=== PATIENT | male | born 1935 | race Caucasian/White ===

== ENCOUNTER 2017-02-06 09:34 | Inpatient (IN) | payer MEDICARE ==
[2017-02-06] MEDS ORDERED: SODIUM CHLORIDE 0.9% 500 ML IV ONE (09:38)
--- NOTE | 2017-02-06 09:41 | ED ---
General Adult HPI - General Stated complaint: Unresponsive Time Seen by Provider: 02/06/17 09:34 Source: RN notes reviewed - History of Present Illness Initial comments: This is an 81-year-old male who presents emergency Department because he was found unresponsive by the [facility] staff. EMS arrived and stated that he was arousable with sternal rub however he was still altered compared to his baseline. They also stated that in route he is heart rate got down to 22 and was between 30 and 50 most of the right in. Patient became more alert on the way and it is now at his baseline. Patient is able to tell me that he is in the hospital and he does not know why is here. Patient states he has no pain in no complaints he has no headache he denies any numbness weakness. Patient denies lightheadedness. Patient denies chest pain difficult to breathing or shortness of breath. Patient denies any palpitations. Patient denies abdominal pain patient denies nausea vomiting diarrhea. Patient denies any recent history of fever or cough. - Related Data Home Medications Medication Instructions Recorded Confirmed Acetaminophen Tab [Tylenol Tab] 650 mg PO Q4H PRN 02/06/17 02/06/17 Aspirin 81 mg PO DAILY@1700 02/06/17 02/06/17 Baclofen [Lioresal] 10 mg PO BID@1200,2100 02/06/17 02/06/17 Baclofen [Lioresal] 20 mg PO BID@0800,1700 02/06/17 02/06/17 Budesonide [Pulmicort] 0.5 mg INHALATION RT-BID@0800,1700 02/06/17 02/06/17 Citalopram Hydrobromide [CeleXA] 10 mg PO DAILY 02/06/17 02/06/17 Diclofenac Sodium [Voltaren Gel] 1 applic TOPICAL TID@0800,1400,2000 02/06/17 Ferrous Sulfate [Feosol] 325 mg PO DAILY@1700 02/06/17 02/06/17 HYDROcodone/APAP 7.5-325MG [[place] 1 tab PO Q6H PRN 02/06/17 02/06/17 7.5-325] Insulin Aspart [NovoLOG] 4 unit SQ DAILY@1100 02/06/17 02/06/17 Insulin Aspart [NovoLOG] 4 unit SQ DAILY@1730 02/06/17 02/06/17 Insulin Aspart [NovoLOG] 7 unit SQ DAILY@0700 02/06/17 02/06/17 Insulin Glargine [Lantus] 10 unit SQ HS@2130 02/06/17 02/06/17 Lidocaine 2% Gel [Xylocaine Jelly 1 applic TOPICAL DAILY PRN 02/06/17 02/06/17 2%] Loperamide HCl [Imodium A-D] 4 mg PO BID PRN MDD 8MG 02/06/17 02/06/17 Memantine [Namenda] 5 mg PO DAILY 02/06/17 02/06/17 Menthol/Zinc Oxide [Calmoseptine 1 applic TOPICAL BID 02/06/17 02/06/17 Ointment] Menthol/Zinc Oxide [Calmoseptine 1 applic TOPICAL DAILY PRN 02/06/17 02/06/17 Ointment] Metoprolol Succinate (ER) [Toprol 25 mg PO DAILY 02/06/17 02/06/17 Xl] Potassium Chloride ER [K-Dur 10] 10 meq PO DAILY@1700 02/06/17 02/06/17 Rivaroxaban [Xarelto] 15 mg PO DAILY 02/06/17 02/06/17 Simvastatin [Zocor] 20 mg PO HS 02/06/17 02/06/17 sitaGLIPtin PHOSPHATE [Januvia] 50 mg PO DAILY 02/06/17 02/06/17 Allergies Allergy/AdvReac Type Severity Reaction Status Date / Time No Known Allergies Allergy Verified 02/06/17 09:55 Review of Systems ROS Statement: Those systems with pertinent positive or pertinent negative responses have been documented in the HPI. ROS Other: All systems not noted in ROS Statement are negative. General Exam - General Exam Comments Initial Comments: GENERAL: Patient is well-developed and well-nourished. Patient is nontoxic and well- hydrated and is in no acute distress. ENT: Neck is soft and supple. No significant lymphadenopathy is noted. Oropharynx is clear. Moist mucous membranes. Neck has full range of motion without eliciting any pain. EYES: The sclera were anicteric and conjunctiva were pink and moist. Extraocular movements were intact and pupils were equal round and reactive to light. Eyelids were unremarkable. PULMONARY: Unlabored respirations. Good breath sounds bilaterally. No audible rales rhonchi or wheezing was noted. CARDIOVASCULAR: Patient's heart rate is bradycardic in the low 50s ABDOMEN: Soft and nontender with normal bowel sounds. No palpable organomegaly was noted. There is no palpable pulsatile mass. SKIN: Skin is clear with no lesions or rashes and otherwise unremarkable. NEUROLOGIC: Patient is alert and oriented x3. Cranial nerves II through XII are grossly intact. Motor and sensory are also intact. Normal speech, volume and content. Symmetrical smile. MUSCULOSKELETAL: Patient has bilateral edema and chronic cellulitis. LYMPHATICS: No significant lymphadenopathy is noted PSYCHIATRIC: Normal psychiatric evaluation. Normal interpersonal interactions appears functionally intact in deals appropriately with others. No signs of depression. No signs of anxiety Course Vital Signs 02/06/17 02/06/17 02/06/17 09:43 10:01 10:31 Temperature 97.0 F L Pulse Rate 49 L 48 L 46 L Respiratory 18 18 18 Rate Blood Pressure 129/67 131/62 155/72 O2 Sat by Pulse 97 99 98 Oximetry Medical Decision Making - Medical Decision Making EKG shows 49 bpm it appears to be atrial fibrillation QRS is under QT intervals 492 QTC is 444. Patient's EKG shows no ST segment elevation or depression no T- wave abnormalities are noted. Chest x-ray shows possible airspace disease in the retrocardiac space patient however has no breathing symptoms or cough. - Lab Data Result diagrams: 02/06/17 10:03 02/06/17 10:03 Lab Results 02/06/17 02/06/17 02/06/17 Range/Units 09:58 10:03 10:03 WBC 9.6 (3.8-10.6) k/uL RBC 5.94 H (4.30-5.90) m/uL Hgb 14.2 (13.0-17.5) gm/dL Hct 47.3 (39.0-53.0) % MCV 79.7 L (80.0-100.0) fL MCH 24.0 L (25.0-35.0) pg MCHC 30.1 L (31.0-37.0) g/dL RDW 19.1 H (11.5-15.5) % Plt Count 197 (150-450) k/uL Neutrophils % 65 % Lymphocytes % 21 % Monocytes % 5 % Eosinophils % 6 % Basophils % 1 % Neutrophils # 6.2 (1.3-7.7) k/uL Lymphocytes # 2.0 (1.0-4.8) k/uL Monocytes # 0.5 (0-1.0) k/uL Eosinophils # 0.6 (0-0.7) k/uL Basophils # 0.1 (0-0.2) k/uL Hypochromasia Moderate Anisocytosis Slight Microcytosis Slight PT (9.0-12.0) sec INR (<1.2) APTT (22.0-30.0) sec Sodium (137-145) mmol/L Potassium (3.5-5.1) mmol/L Chloride (98-107) mmol/L Carbon Dioxide (22-30) mmol/L Anion Gap mmol/L BUN (9-20) mg/dL Creatinine (0.66-1.25) mg/dL Est GFR (MDRD) Af Amer (>60 ml/min/1.73 sqM) Est GFR (MDRD) Non-Af (>60 ml/min/1.73 sqM) Glucose (74-99) mg/dL POC Glucose (mg/dL) (75-99) mg/dL POC Glu [place] ID Plasma Lactic Acid Ihsan (0.7-2.0) mmol/L Calcium (8.4-10.2) mg/dL Total Bilirubin (0.2-1.3) mg/dL AST (17-59) U/L ALT (21-72) U/L Alkaline Phosphatase (38-126) U/L Total Creatine Kinase 23 L (55-170) U/L CK-MB (CK-2) 1.1 (0.0-2.4) ng/mL CK-MB (CK-2) Rel Index 4.8 Troponin I <0.012 (0.000-0.034) ng/mL Total Protein (6.3-8.2) g/dL Albumin (3.5-5.0) g/dL Urine Color Brown Urine Appearance Turbid (Clear) Urine pH 6.0 (5.0-8.0) Ur Specific Harper 1.015 (1.001-1.035) Urine Protein 2+ H (Negative) Urine Glucose (UA) Negative (Negative) Urine Ketones Negative (Negative) Urine Blood Moderate H (Negative) Urine Nitrite Positive (Negative) Urine Bilirubin Negative (Negative) Urine Urobilinogen <2.0 (<2.0) mg/dL Ur Leukocyte Esterase Large H (Negative) Urine RBC 56 H (0-5) /hpf Urine WBC >182 H (0-5) /hpf Urine WBC Clumps Moderate H (None) /hpf Urine Bacteria Moderate H (None) /hpf Urine Opiates Screen Cancelled Ur Oxycodone Screen Cancelled Urine Methadone Screen Cancelled Ur Propoxyphene Screen Cancelled Ur Barbiturates Screen Cancelled U Tricyclic Antidepress Cancelled Ur Phencyclidine Scrn Cancelled Ur Amphetamines Screen Cancelled U Methamphetamines Scrn Cancelled U Benzodiazepines Scrn Cancelled Urine Cocaine Screen Cancelled U Marijuana (THC) Screen Cancelled 02/06/17 02/06/17 02/06/17 Range/Units 10:03 10:03 10:08 WBC (3.8-10.6) k/uL RBC (4.30-5.90) m/uL Hgb (13.0-17.5) gm/dL Hct (39.0-53.0) % MCV (80.0-100.0) fL MCH (25.0-35.0) pg MCHC (31.0-37.0) g/dL RDW (11.5-15.5) % Plt Count (150-450) k/uL Neutrophils % % Lymphocytes % % Monocytes % % Eosinophils % % Basophils % % Neutrophils # (1.3-7.7) k/uL Lymphocytes # (1.0-4.8) k/uL Monocytes # (0-1.0) k/uL Eosinophils # (0-0.7) k/uL Basophils # (0-0.2) k/uL Hypochromasia Anisocytosis Microcytosis PT 11.9 (9.0-12.0) sec INR 1.2 H (<1.2) APTT 29.0 (22.0-30.0) sec Sodium 141 (137-145) mmol/L Potassium 4.7 (3.5-5.1) mmol/L Chloride 105 (98-107) mmol/L Carbon Dioxide 30 (22-30) mmol/L Anion Gap 6 mmol/L BUN 17 (9-20) mg/dL Creatinine 0.82 (0.66-1.25) mg/dL Est GFR (MDRD) Af Amer >60 (>60 ml/min/1.73 sqM) Est GFR (MDRD) Non-Af >60 (>60 ml/min/1.73 sqM) Glucose 113 H (74-99) mg/dL POC Glucose (mg/dL) 124 H (75-99) mg/dL POC Glu [place] ID [place] Plasma Lactic Acid Ihsan (0.7-2.0) mmol/L Calcium 8.8 (8.4-10.2) mg/dL Total Bilirubin 0.6 (0.2-1.3) mg/dL AST 16 L (17-59) U/L ALT 30 (21-72) U/L Alkaline Phosphatase 92 (38-126) U/L Total Creatine Kinase (55-170) U/L CK-MB (CK-2) (0.0-2.4) ng/mL CK-MB (CK-2) Rel Index Troponin I (0.000-0.034) ng/mL Total Protein 6.1 L (6.3-8.2) g/dL Albumin 3.1 L (3.5-5.0) g/dL Urine Color Urine Appearance (Clear) Urine pH (5.0-8.0) Ur Specific [place] (1.001-1.035) Urine Protein (Negative) Urine Glucose (UA) (Negative) Urine Ketones (Negative) Urine Blood (Negative) Urine Nitrite (Negative) Urine Bilirubin (Negative) Urine Urobilinogen (<2.0) mg/dL Ur Leukocyte Esterase (Negative) Urine RBC (0-5) /hpf Urine WBC (0-5) /hpf Urine WBC Clumps (None) /hpf Urine Bacteria (None) /hpf Urine Opiates Screen Ur Oxycodone Screen Urine Methadone Screen Ur Propoxyphene Screen Ur Barbiturates Screen U Tricyclic Antidepress Ur Phencyclidine Scrn Ur Amphetamines Screen U Methamphetamines Scrn U Benzodiazepines Scrn Urine Cocaine Screen U Marijuana (THC) Screen 02/06/17 Range/Units 11:11 WBC (3.8-10.6) k/uL RBC (4.30-5.90) m/uL Hgb (13.0-17.5) gm/dL Hct (39.0-53.0) % MCV (80.0-100.0) fL MCH (25.0-35.0) pg MCHC (31.0-37.0) g/dL RDW (11.5-15.5) % Plt Count (150-450) k/uL Neutrophils % % Lymphocytes % % Monocytes % % Eosinophils % % Basophils % % Neutrophils # (1.3-7.7) k/uL Lymphocytes # (1.0-4.8) k/uL Monocytes # (0-1.0) k/uL Eosinophils # (0-0.7) k/uL Basophils # (0-0.2) k/uL Hypochromasia Anisocytosis Microcytosis PT (9.0-12.0) sec INR (<1.2) APTT (22.0-30.0) sec Sodium (137-145) mmol/L Potassium (3.5-5.1) mmol/L Chloride (98-107) mmol/L Carbon Dioxide (22-30) mmol/L Anion Gap mmol/L BUN (9-20) mg/dL Creatinine (0.66-1.25) mg/dL Est GFR (MDRD) Af Amer (>60 ml/min/1.73 sqM) Est GFR (MDRD) Non-Af (>60 ml/min/1.73 sqM) Glucose (74-99) mg/dL POC Glucose (mg/dL) (75-99) mg/dL POC Glu [place] ID Plasma Lactic Acid Ihsan 3.0 H* (0.7-2.0) mmol/L Calcium (8.4-10.2) mg/dL Total Bilirubin (0.2-1.3) mg/dL AST (17-59) U/L ALT (21-72) U/L Alkaline Phosphatase (38-126) U/L Total Creatine Kinase (55-170) U/L CK-MB (CK-2) (0.0-2.4) ng/mL CK-MB (CK-2) Rel Index Troponin I (0.000-0.034) ng/mL Total Protein (6.3-8.2) g/dL Albumin (3.5-5.0) g/dL Urine Color Urine Appearance (Clear) Urine pH (5.0-8.0) Ur Specific [place] (1.001-1.035) Urine Protein (Negative) Urine Glucose (UA) (Negative) Urine Ketones (Negative) Urine Blood (Negative) Urine Nitrite (Negative) Urine Bilirubin (Negative) Urine Urobilinogen (<2.0) mg/dL Ur Leukocyte Esterase (Negative) Urine RBC (0-5) /hpf Urine WBC (0-5) /hpf Urine WBC Clumps (None) /hpf Urine Bacteria (None) /hpf Urine Opiates Screen Ur Oxycodone Screen Urine Methadone Screen Ur Propoxyphene Screen Ur Barbiturates Screen U Tricyclic Antidepress Ur Phencyclidine Scrn Ur Amphetamines Screen U Methamphetamines Scrn U Benzodiazepines Scrn Urine Cocaine Screen U Marijuana (THC) Screen Disposition Clinical Impression: Decreased responsiveness, Bradycardia, Urinary tract infection Disposition: ADMITTED IP TO THIS HOSP Referrals: Sabas Alexis MD [Primary Care Provider] - 1-2 days Time of Disposition: 11:38
[2017-02-06 10:09] LABS: Glucose,Whole Blood 124 mg/dL (75-99)
[2017-02-06 10:25] LABS: Anisocytosis Slight; Basophils # (A) 0.1 k/uL (0-0.2); Basophils % (A) 1 %; CH 24.1; CHCM 30.4; Eosinophils # (A) 0.6 k/uL (0-0.7); Eosinophils % (A) 6 %; HCT 47.3 % (39.0-53.0); HDW 2.96; HGB 14.2 gm/dL (13.0-17.5); Hypochromasia Moderate; Luc # (Auto) 0.24; Luc % (Auto) 3; Lymphocytes % (A) 21 %; MCHC 30.1 g/dL (31.0-37.0); MCV 79.7 fL (80.0-100.0); Mean Platelet Volume 7.6; Microcytosis Slight; Monocytes # (A) 0.5 k/uL (0-1.0); Monocytes % (A) 5 %; Neutrophils # (A) 6.2 k/uL (1.3-7.7); Neutrophils % (A) 65 %; RBC 5.94 m/uL (4.30-5.90); RDW 19.1 % (11.5-15.5); WBC 9.6 k/uL (3.8-10.6); WBC (Perox) 9.18
--- NOTE | 2017-02-06 10:29 | XR ---
EXAMINATION TYPE: XR chest 2V DATE OF EXAM: 02/06/2017 COMPARISON: NONE HISTORY: Altered mental status TECHNIQUE: Frontal and lateral views of the chest are obtained. FINDINGS: Focal retrocardiac airspace disease is seen within the left lower lobe. No pleural effusio n or pneumothorax. Degenerative changes of the thoracic spine and acromioclavicular joints as well as to a lesser degree over the right glenohumeral joint are seen. Cardiac silhouette mildly enlarged. IMPRESSION: Retrocardiac airspace disease within the left lower lobe. Primary diagnostic considerati on should be given to pneumonia.
[2017-02-06 10:34] LABS: INR 1.2 (<1.2); Prothrombin Time 11.9 sec (9.0-12.0)
[2017-02-06 10:37] LABS: ALT 30 U/L (21-72); AST 16 U/L (17-59); Alkaline Phosphatase 92 U/L (38-126); Anion Gap 6 mmol/L; Blood Urea Nitrogen 17 mg/dL (9-20); Calcium 8.8 mg/dL (8.4-10.2); Carbon Dioxide 30 mmol/L (22-30); Chloride 105 mmol/L (98-107); Glucose 113 mg/dL (74-99); Non-African American GFR(MDRD) >60 (>60 ml/min/1.73 sqM); Potassium 4.7 mmol/L (3.5-5.1); Sodium 141 mmol/L (137-145); Total Bilirubin 0.6 mg/dL (0.2-1.3); Total Protein 6.1 g/dL (6.3-8.2)
[2017-02-06 10:39] LABS: Appearance,Urine Turbid (Clear); Bacteria,Urine Moderate /hpf; Bilirubin,Urine Negative (Negative); Glucose,Urine (UA) Negative (Negative); Ketones,Urine Negative (Negative); Leukocyte Esterase,Urine Large (Negative); Nitrite,Urine Positive (Negative); Particle Count 44298; Protein,Urine 2+ (Negative); RBC,Urine 56 /hpf (0-5); UA Billing (MACRO vs. MICRO) MICRO; Urobilinogen,Urine <2.0 mg/dL (<2.0); WBC,Urine >182 /hpf (0-5)
[2017-02-06 10:47] LABS: Creatine Kinase 23 U/L (55-170)
[2017-02-06 10:54] LABS: Specific Gravity,Urine 1.015 (1.001-1.035)
[2017-02-06 11:00] LABS: Creatine Kinase MB 1.1 ng/mL (0.0-2.4); Troponin I <0.012 ng/mL (0.000-0.034)
[2017-02-06] MEDS ORDERED: SODIUM CHLORIDE 0.9% 1,000 ML IV STA (11:36)
[2017-02-06] MEDS ORDERED: SODIUM CHLORIDE 0.9% 1,000 ML IV ONE (11:38)
--- NOTE | 2017-02-06 14:08 | P.CRDCN ---
History of Present Illness Consult date: 02/06/17 Chief complaint: Syncopal episode History of present illness: This is a pleasant 81-year-old gentleman who is a resident of a retirement with a past medical history significant for chronic atrial fibrillation who was brought to the hospital by ambulance after he was found unresponsive at the retirement. The patient does not recall feeling dizzy or lightheaded but she thinks that he lost his consciousness. He did not experience any symptoms of chest pain or discomfort or difficulty breathing or feeling of heart racing or fluttering or skipped heart beats. At to the retirement the patient was found to be severely bradycardic with heart rate in the 30s. He was receiving Toprol-XL at 25 mg by mouth daily which was stopped. Currently the patient has been maintaining a heart rate in the 40s and he is in chronic atrial fibrillation. The patient is on anticoagulation as well as. He has severe MS and he is almost immobile. As a matter of fact he fell out of the bed few days ago. I don't think overall that the patient is a candidate to be on oral anticoagulation in view of the high risk of falling and bleeding. The EKG showed baseline atrial fibrillation with a slow ventricular response. The chest x-ray did not show any acute abnormalities. The blood work also did not show any acute abnormalities. Past Medical History Past Medical History: Atrial Fibrillation, COPD, Diabetes Mellitus Additional Past Medical History / Comment(s): MS History of Any Multi-Drug Resistant Organisms: None Reported Past Surgical History: Orthopedic Surgery Past Psychological History: No Psychological Hx Reported Smoking Status: Former smoker Past Alcohol Use History: None Reported Past Drug Use History: None Reported Medications and Allergies Home Medications Medication Instructions Recorded Confirmed Type Acetaminophen Tab [Tylenol Tab] 650 mg PO Q4H PRN 02/06/17 02/06/17 History Aspirin 81 mg PO DAILY@1700 02/06/17 02/06/17 History Baclofen [Lioresal] 10 mg PO BID@1200,2100 02/06/17 02/06/17 History Baclofen [Lioresal] 20 mg PO BID@0800,1700 02/06/17 02/06/17 History Budesonide [Pulmicort] 0.5 mg INHALATION RT-BID@0800,1700 02/06/17 02/06/17 History Citalopram Hydrobromide [CeleXA] 10 mg PO DAILY 02/06/17 02/06/17 History Diclofenac Sodium [Voltaren Gel] 1 applic TOPICAL TID@0800,1400,2000 02/06/17 History Ferrous Sulfate [Feosol] 325 mg PO DAILY@1700 02/06/17 02/06/17 History HYDROcodone/APAP 7.5-325MG [[place] 1 tab PO Q6H PRN 02/06/17 02/06/17 History 7.5-325] Insulin Aspart [NovoLOG] 4 unit SQ DAILY@1100 02/06/17 02/06/17 History Insulin Aspart [NovoLOG] 4 unit SQ DAILY@1730 02/06/17 02/06/17 History Insulin Aspart [NovoLOG] 7 unit SQ DAILY@0700 02/06/17 02/06/17 History Insulin Glargine [Lantus] 10 unit SQ HS@2130 02/06/17 02/06/17 History Lidocaine 2% Gel [Xylocaine Jelly 1 applic TOPICAL DAILY PRN 02/06/17 02/06/17 History 2%] Loperamide HCl [Imodium A-D] 4 mg PO BID PRN MDD 8MG 02/06/17 02/06/17 History Memantine [Namenda] 5 mg PO DAILY 02/06/17 02/06/17 History Menthol/Zinc Oxide [Calmoseptine 1 applic TOPICAL BID 02/06/17 02/06/17 History Ointment] Menthol/Zinc Oxide [Calmoseptine 1 applic TOPICAL DAILY PRN 02/06/17 02/06/17 History Ointment] Metoprolol Succinate (ER) [Toprol 25 mg PO DAILY 02/06/17 02/06/17 History Xl] Potassium Chloride ER [K-Dur 10] 10 meq PO DAILY@1700 02/06/17 02/06/17 History Rivaroxaban [Xarelto] 15 mg PO DAILY 02/06/17 02/06/17 History Simvastatin [Zocor] 20 mg PO HS 02/06/17 02/06/17 History sitaGLIPtin PHOSPHATE [Januvia] 50 mg PO DAILY 02/06/17 02/06/17 History Allergies Allergy/AdvReac Type Severity Reaction Status Date / Time No Known Allergies Allergy Verified 02/06/17 09:55 Physical Exam Vitals: Vital Signs Temp Pulse Resp BP Pulse Ox 02/06/17 11:45 97.3 F L 47 L 18 133/69 98 02/06/17 10:31 46 L 18 155/72 98 02/06/17 10:01 48 L 18 131/62 99 02/06/17 09:43 97.0 F L 49 L 18 129/67 97 Intake and Output 02/05/17 02/06/17 02/06/17 22:59 06:59 14:59 Other: Weight 98.883 kg Patient Weight 02/07/17 06:59 Weight 98.883 kg - Constitutional General appearance: no acute distress - Respiratory Respiratory: bilateral: diminished - Cardiovascular Rhythm: irregularly irregular Heart sounds: normal: S1, S2 Results 02/06/17 10:03 02/06/17 10:03 Cardiac Enzymes 02/06/17 02/06/17 Range/Units 10:03 10:03 AST 16 L (17-59) U/L CK-MB (CK-2) 1.1 (0.0-2.4) ng/mL Troponin I <0.012 (0.000-0.034) ng/mL Coagulation 02/06/17 Range/Units 10:03 PT 11.9 (9.0-12.0) sec APTT 29.0 (22.0-30.0) sec CBC 02/06/17 Range/Units 10:03 WBC 9.6 (3.8-10.6) k/uL RBC 5.94 H (4.30-5.90) m/uL Hgb 14.2 (13.0-17.5) gm/dL Hct 47.3 (39.0-53.0) % Plt Count 197 (150-450) k/uL Comprehensive Metabolic Panel 02/06/17 Range/Units 10:03 Sodium 141 (137-145) mmol/L Potassium 4.7 (3.5-5.1) mmol/L Chloride 105 (98-107) mmol/L Carbon Dioxide 30 (22-30) mmol/L BUN 17 (9-20) mg/dL Creatinine 0.82 (0.66-1.25) mg/dL Glucose 113 H (74-99) mg/dL Calcium 8.8 (8.4-10.2) mg/dL AST 16 L (17-59) U/L ALT 30 (21-72) U/L Alkaline Phosphatase 92 (38-126) U/L Total Protein 6.1 L (6.3-8.2) g/dL Albumin 3.1 L (3.5-5.0) g/dL Current Medications Generic Name Dose Route Start Last Admin Trade Name Freq PRN Reason Stop Dose Admin Ceftriaxone Sodium 1,000 mg/ 50 mls @ 100 mls/hr 02/07/17 09:00 Sodium Chloride IVPB Q24HR EZE Sodium Chloride 1,000 mls @ 75 mls/hr 02/06/17 11:38 02/06/17 12:12 Saline 0.9% IV 02/07/17 00:57 75 mls/hr .[id number] Administration Intake and Output 02/05/17 02/06/17 02/06/17 22:59 06:59 14:59 Other: Weight 98.883 kg Patient Weight 02/07/17 06:59 Weight 98.883 kg 02/06/17 10:03 02/06/17 10:03 Assessment and Plan Plan: This is a pleasant 81-year-old gentleman who is known to have chronic atrial fibrillation who was receiving Toprol-XL at 25 mg by mouth daily. He was found to be unresponsive at the retirement and she was found to be severely bradycardic with heart rate in the 30s. Currently the patient has been maintaining good blood pressure and heart rate around 40 beats per minutes. I agree about continue holding the Toprol-XL. Ruled the patient out for acute coronary syndrome. Check the TSH to rule out any hypothyroidism. Continue monitor the heart rate for the next 24 hours.
[2017-02-06] MEDS ORDERED: LOPERAMIDE 2 MG CAP PO PRN (14:35)
[2017-02-06] MEDS ORDERED: ACETAMINOPHEN TAB 325 MG TAB PO PRN (14:35)
[2017-02-06] MEDS ORDERED: HYDROcodone/APAP 7.5-325MG 1 EACH TAB PO PRN (14:35)
--- NOTE | 2017-02-06 14:40 | P.HPIM ---
History of Present Illness H&P Date: 02/06/17 Chief Complaint: Syncope and unresponsiveness heart rate mid 20s This is a pleasant 81-year-old gentleman patient of Dr. Dr. Alexis up at [facility], he has underlying history of Parkinson's requiring a power chair otherwise he is bedbound, chronic indwelling Lehman catheter, CAD, chronic atrial fibrillation, BPH, anemia, left foot drop, admitted to the hospital secondary to him being found unresponsive in bed. Patient was severely bradycardic when initially by residential staff, heart rate was mid 20s evaluated by the EMS, heart rate mid 30s, he is on Toprol-XL 25 mg daily. Patient does not have any recollection of events, patient denies any chest pain no palpitations he does have chills sweats no fever no nausea no vomiting or diarrhea, his last Lehman catheter change was 3 weeks ago performed at the emergency room, they have difficulty on inserting the Lehman catheter at the residential and requires ER physician to do it for them. 3 days ago patient had fallen out of bed and had hematuria as a result of L1, patient denies any new joint difficulties In the emergency room hemoglobin was 14.2 INR of 1.2 creatinine of 0.82, pyuria noted urine WBC of over 182, patient currently started on IV Rocephin for catheter related urinary tract infection with cultures pending, consults were made with Dr. Diaz cardiology, Toprol-XL has been discontinued Review of Systems Constitutional: Reports as per HPI, Reports chills, Denies anorexia, Denies chronic headaches, Denies chronic pain, Denies daytime sleepiness, Denies fatigue, Denies fever, Denies lethargy, Denies malaise, Denies night sweats, Denies poor appetite, Denies sweats, Denies weakness, Denies weight gain, Denies weight loss Ears, nose, mouth and throat: Reports as per HPI, Denies ant. neck pain, Denies bleeding gums, Denies dental pain, Denies dysphagia, Denies epistaxis, Denies headache, Denies hoarseness, Denies mouth pain, Denies nasal congestion, Denies nasal discharge, Denies neck fullness/pressure, Denies neck lump, Denies nose pain, Denies odynophagia, Denies post-nasal drip, Denies sinus pain, Denies sinus pressure, Denies swelling in mouth, Denies swelling in throat, Denies sore throat, Denies vertigo, Denies voice changes Cardiovascular: Reports as per HPI, Reports irregular heart beat, Denies chest pain, Denies claudication, Denies decreased exercise tolerance, Denies dyspnea on exertion, Denies edema, Denies high blood pressure, Denies leg edema, Denies lightheadedness, Denies orthopnea, Denies palpitations, Denies paroxysmal nocturnal dyspnea, Denies phlebitis, Denies rapid heart beat, Denies shortness of breath, Denies syncope Respiratory: Reports as per HPI, Denies congestion, Denies cough, Denies cough with sputum, Denies dyspnea, Denies excessive sputum, Denies hemoptysis, Denies home oxygen, Denies pain, Denies pain on inspiration, Denies pleurisy, Denies respiratory infections, Denies sleep apnea, Denies snoring, Denies wheezing Gastrointestinal: Reports as per HPI, Denies abdominal pain, Denies belching, Denies bloating, Denies BRBPR, Denies change in bowel habits, Denies coffee ground emesis, Denies constipation, Denies diarrhea, Denies dyspepsia, Denies early satiety, Denies excessive gas, Denies heartburn, Denies hematemesis, Denies hematochezia, Denies indigestion, Denies jaundice, Denies lactose intolerance, Denies loss of appetite, Denies melena, Denies nausea, Denies vomiting Genitourinary: Reports as per HPI, Reports hematuria, Reports urinary retention Musculoskeletal: Reports as per HPI, Reports gait dysfunction Integumentary: Reports as per HPI, Reports sores Neurological: Reports as per HPI, Reports syncope, Denies aphasia, Denies ataxia , Denies balance difficulties, Denies burning pain, Denies change in mentation, Denies change in smell/taste, Denies change in speech, Denies confusion, Denies convulsions, Denies double vision, Denies gait dysfunction, Denies head injury, Denies headaches, Denies hearing difficulties, Denies lack of coordination, Denies loss of vision, Denies memory loss, Denies migraines, Denies motor disturbance, Denies numbness, Denies paralysis, Denies paresthesias, Denies seizures, Denies sensory deficit, Denies spasticity, Denies tic, Denies tingling , Denies transient paralysis, Denies tremors, Denies vertigo, Denies weakness, Denies visual changes Psychiatric: Reports as per HPI Endocrine: Reports as per HPI Hematologic/Lymphatic: Reports easy bleeding Allergic/Immunologic: Reports as per HPI Past Medical History Past Medical History: Atrial Fibrillation, COPD, Diabetes Mellitus Additional Past Medical History / Comment(s): MS History of Any Multi-Drug Resistant Organisms: None Reported Past Surgical History: Orthopedic Surgery (Left shoulder surgery arthroscopy), Prostate Surgery (TURP) Past Psychological History: No Psychological Hx Reported Smoking Status: Former smoker (Quit 13 years ago) Past Alcohol Use History: None Reported Past Drug Use History: None Reported - Past Family History Father History Unknown: Yes ( at 85 secondary to heart disease) Mother History Unknown: Yes ( at 80 from heart disease history of thyroid cancer) Brother(s) Family Medical History: No Reported History Sister(s) Family Medical History: No Reported History Daughter(s) Family Medical History: No Reported History Son(s) Family Medical History: Coronary Artery Disease (CAD) (PAD and angioplasty) Medications and Allergies Home Medications Medication Instructions Recorded Confirmed Type Acetaminophen Tab [Tylenol Tab] 650 mg PO Q4H PRN 02/06/17 02/06/17 History Aspirin 81 mg PO DAILY@169902/06/17 02/06/17 History Baclofen [Lioresal] 10 mg PO BID@1200,2100 02/06/17 02/06/17 History Baclofen [Lioresal] 20 mg PO BID@0800,1700 02/06/17 02/06/17 History Budesonide [Pulmicort] 0.5 mg INHALATION RT-BID@0800,1700 02/06/17 02/06/17 History Citalopram Hydrobromide [CeleXA] 10 mg PO DAILY 02/06/17 02/06/17 History Diclofenac Sodium [Voltaren Gel] 1 applic TOPICAL TID@0800,1400,2000 02/06/17 History Ferrous Sulfate [Feosol] 325 mg PO DAILY@1700 02/06/17 02/06/17 History HYDROcodone/APAP 7.5-325MG [Ringwood 1 tab PO Q6H PRN 02/06/17 02/06/17 History 7.5-325] Insulin Aspart [NovoLOG] 4 unit SQ DAILY@1100 02/06/17 02/06/17 History Insulin Aspart [NovoLOG] 4 unit SQ DAILY@1730 02/06/17 02/06/17 History Insulin Aspart [NovoLOG] 7 unit SQ DAILY@0700 02/06/17 02/06/17 History Insulin Glargine [Lantus] 10 unit SQ HS@2130 02/06/17 02/06/17 History Lidocaine 2% Gel [Xylocaine Jelly 1 applic TOPICAL DAILY PRN 02/06/17 02/06/17 History 2%] Loperamide HCl [Imodium A-D] 4 mg PO BID PRN MDD 8MG 02/06/17 02/06/17 History Memantine [Namenda] 5 mg PO DAILY 02/06/17 02/06/17 History Menthol/Zinc Oxide [Calmoseptine 1 applic TOPICAL BID 02/06/17 02/06/17 History Ointment] Menthol/Zinc Oxide [Calmoseptine 1 applic TOPICAL DAILY PRN 02/06/17 02/06/17 History Ointment] Metoprolol Succinate (ER) [Toprol 25 mg PO DAILY 02/06/17 02/06/17 History Xl] Potassium Chloride ER [K-Dur 10] 10 meq PO DAILY@1700 02/06/17 02/06/17 History Rivaroxaban [Xarelto] 15 mg PO DAILY 02/06/17 02/06/17 History Simvastatin [Zocor] 20 mg PO HS 02/06/17 02/06/17 History sitaGLIPtin PHOSPHATE [Januvia] 50 mg PO DAILY 02/06/17 02/06/17 History Allergies Allergy/AdvReac Type Severity Reaction Status Date / Time No Known Allergies Allergy Verified 02/06/17 09:55 Physical Exam Vitals: Vital Signs Temp Pulse Resp BP Pulse Ox 02/06/17 11:45 97.3 F L 47 L 18 133/69 98 02/06/17 10:31 46 L 18 155/72 98 02/06/17 10:01 48 L 18 131/62 99 02/06/17 09:43 97.0 F L 49 L 18 129/67 97 Intake and Output 02/05/17 02/06/17 02/06/17 22:59 06:59 14:59 Other: Weight 98.883 kg Patient Weight 02/07/17 06:59 Weight 98.883 kg - Constitutional General appearance: cooperative, no acute distress - EENT Eyes: anicteric sclerae, EOMI, PERRLA, dentition normal, normal appearance ENT: NA/AT, normal oropharynx - Neck Neck: no lymphadenopathy, normal ROM, no other, no rigidity, no stridor, no thyromegaly - Respiratory Respiratory: bilateral: CTA, negative: diminished, dullness, rales - Cardiovascular Rhythm: regular Heart sounds: normal: S1, S2 Abnormal Heart Sounds: no systolic murmur, no diastolic murmur, no rub, no S3 Gallop, no S4 Gallop, no click, no other - Gastrointestinal General gastrointestinal: normal bowel sounds, soft - Genitourinary Male genitourinary: scrotal edema (No scrotal edema no penile laceration, small scab in the right scrotum) - Integumentary Integumentary: normal - Neurologic Neurologic: CNII-XII intact - Musculoskeletal Musculoskeletal: generalized weakness, strength equal bilaterally - Psychiatric Psychiatric: A&O x's 3, appropriate affect Results CBC & Chem 7: 02/06/17 10:03 02/06/17 10:03 Labs: Abnormal Lab Results - Last 24 Hours (Table) 02/06/17 02/06/17 02/06/17 Range/Units 09:58 10:03 10:03 RBC 5.94 H (4.30-5.90) m/uL MCV 79.7 L (80.0-100.0) fL MCH 24.0 L (25.0-35.0) pg MCHC 30.1 L (31.0-37.0) g/dL RDW 19.1 H (11.5-15.5) % INR (<1.2) Glucose (74-99) mg/dL POC Glucose (mg/dL) (75-99) mg/dL Plasma Lactic Acid Ihsan (0.7-2.0) mmol/L AST (17-59) U/L Total Creatine Kinase 23 L (55-170) U/L Total Protein (6.3-8.2) g/dL Albumin (3.5-5.0) g/dL Urine Protein 2+ H (Negative) Urine Blood Moderate H (Negative) Ur Leukocyte Esterase Large H (Negative) Urine RBC 56 H (0-5) /hpf Urine WBC >182 H (0-5) /hpf Urine WBC Clumps Moderate H (None) /hpf Urine Bacteria Moderate H (None) /hpf 02/06/17 02/06/17 02/06/17 Range/Units 10:03 10:03 10:08 RBC (4.30-5.90) m/uL MCV (80.0-100.0) fL MCH (25.0-35.0) pg MCHC (31.0-37.0) g/dL RDW (11.5-15.5) % INR 1.2 H (<1.2) Glucose 113 H (74-99) mg/dL POC Glucose (mg/dL) 124 H (75-99) mg/dL Plasma Lactic Acid Ihsan (0.7-2.0) mmol/L AST 16 L (17-59) U/L Total Creatine Kinase (55-170) U/L Total Protein 6.1 L (6.3-8.2) g/dL Albumin 3.1 L (3.5-5.0) g/dL Urine Protein (Negative) Urine Blood (Negative) Ur Leukocyte Esterase (Negative) Urine RBC (0-5) /hpf Urine WBC (0-5) /hpf Urine WBC Clumps (None) /hpf Urine Bacteria (None) /hpf 02/06/17 Range/Units 11:11 RBC (4.30-5.90) m/uL MCV (80.0-100.0) fL MCH (25.0-35.0) pg MCHC (31.0-37.0) g/dL RDW (11.5-15.5) % INR (<1.2) Glucose (74-99) mg/dL POC Glucose (mg/dL) (75-99) mg/dL Plasma Lactic Acid Ihsan 3.0 H* (0.7-2.0) mmol/L AST (17-59) U/L Total Creatine Kinase (55-170) U/L Total Protein (6.3-8.2) g/dL Albumin (3.5-5.0) g/dL Urine Protein (Negative) Urine Blood (Negative) Ur Leukocyte Esterase (Negative) Urine RBC (0-5) /hpf Urine WBC (0-5) /hpf Urine WBC Clumps (None) /hpf Urine Bacteria (None) /hpf Laboratory Results WBC 9.6 k/uL (3.8-10.6) 02/06/17 10:03 RBC 5.94 m/uL (4.30-5.90) H 02/06/17 10:03 Hgb 14.2 gm/dL (13.0-17.5) 02/06/17 10:03 Hct 47.3 % (39.0-53.0) 02/06/17 10:03 MCV 79.7 fL (80.0-100.0) L 02/06/17 10:03 MCH 24.0 pg (25.0-35.0) L 02/06/17 10:03 MCHC 30.1 g/dL (31.0-37.0) L 02/06/17 10:03 RDW 19.1 % (11.5-15.5) H 02/06/17 10:03 Plt Count 197 k/uL (150-450) 02/06/17 10:03 Neutrophils % 65 % 02/06/17 10:03 Lymphocytes % 21 % 02/06/17 10:03 Monocytes % 5 % 02/06/17 10:03 Eosinophils % 6 % 02/06/17 10:03 Basophils % 1 % 02/06/17 10:03 Neutrophils # 6.2 k/uL (1.3-7.7) 02/06/17 10:03 Lymphocytes # 2.0 k/uL (1.0-4.8) 02/06/17 10:03 Monocytes # 0.5 k/uL (0-1.0) 02/06/17 10:03 Eosinophils # 0.6 k/uL (0-0.7) 02/06/17 10:03 Basophils # 0.1 k/uL (0-0.2) 02/06/17 10:03 Hypochromasia Moderate 02/06/17 10:03 Anisocytosis Slight 02/06/17 10:03 Microcytosis Slight 02/06/17 10:03 PT 11.9 sec (9.0-12.0) 02/06/17 10:03 INR 1.2 (<1.2) H 02/06/17 10:03 APTT 29.0 sec (22.0-30.0) 02/06/17 10:03 Sodium 141 mmol/L (137-145) 02/06/17 10:03 Potassium 4.7 mmol/L (3.5-5.1) 02/06/17 10:03 Chloride 105 mmol/L (98-107) 02/06/17 10:03 Carbon Dioxide 30 mmol/L (22-30) 02/06/17 10:03 Anion Gap 6 mmol/L 02/06/17 10:03 BUN 17 mg/dL (9-20) 02/06/17 10:03 Creatinine 0.82 mg/dL (0.66-1.25) 02/06/17 10:03 Est GFR (MDRD) Af Amer >60 (>60 ml/min/1.73 sqM) 02/06/17 10:03 Est GFR (MDRD) Non-Af >60 (>60 ml/min/1.73 sqM) 02/06/17 10:03 Glucose 113 mg/dL (74-99) H 02/06/17 10:03 POC Glucose (mg/dL) 124 mg/dL (75-99) H 02/06/17 10:08 POC Glu Limnologist Bailey Holguin 02/06/17 10:08 Plasma Lactic Acid Ihsan 3.0 mmol/L (0.7-2.0) H* 02/06/17 11:11 Calcium 8.8 mg/dL (8.4-10.2) 02/06/17 10:03 Total Bilirubin 0.6 mg/dL (0.2-1.3) 02/06/17 10:03 AST 16 U/L (17-59) L 02/06/17 10:03 ALT 30 U/L (21-72) 02/06/17 10:03 Alkaline Phosphatase 92 U/L (38-126) 02/06/17 10:03 Total Creatine Kinase 23 U/L (55-170) L 02/06/17 10:03 CK-MB (CK-2) 1.1 ng/mL (0.0-2.4) 02/06/17 10:03 CK-MB (CK-2) Rel Index 4.8 02/06/17 10:03 Troponin I <0.012 ng/mL (0.000-0.034) 02/06/17 10:03 Total Protein 6.1 g/dL (6.3-8.2) L 02/06/17 10:03 Albumin 3.1 g/dL (3.5-5.0) L 02/06/17 10:03 Urine Color Brown 02/06/17 09:58 Urine Appearance Turbid (Clear) 02/06/17 09:58 Urine pH 6.0 (5.0-8.0) 02/06/17 09:58 Ur Specific Nettie 1.015 (1.001-1.035) 02/06/17 09:58 Urine Protein 2+ (Negative) H 02/06/17 09:58 Urine Glucose (UA) Negative (Negative) 02/06/17 09:58 Urine Ketones Negative (Negative) 02/06/17 09:58 Urine Blood Moderate (Negative) H 02/06/17 09:58 Urine Nitrite Positive (Negative) 02/06/17 09:58 Urine Bilirubin Negative (Negative) 02/06/17 09:58 Urine Urobilinogen <2.0 mg/dL (<2.0) 02/06/17 09:58 Ur Leukocyte Esterase Large (Negative) H 02/06/17 09:58 Urine RBC 56 /hpf (0-5) H 02/06/17 09:58 Urine WBC >182 /hpf (0-5) H 02/06/17 09:58 Urine WBC Clumps Moderate /hpf (None) H 02/06/17 09:58 Urine Bacteria Moderate /hpf (None) H 02/06/17 09:58 Urine Opiates Screen Cancelled 02/06/17 09:58 Ur Oxycodone Screen Cancelled 02/06/17 09:58 Urine Methadone Screen Cancelled 02/06/17 09:58 Ur Propoxyphene Screen Cancelled 02/06/17 09:58 Ur Barbiturates Screen Cancelled 02/06/17 09:58 U Tricyclic Antidepress Cancelled 02/06/17 09:58 Ur Phencyclidine Scrn Cancelled 02/06/17 09:58 Ur Amphetamines Screen Cancelled 02/06/17 09:58 U Methamphetamines Scrn Cancelled 02/06/17 09:58 U Benzodiazepines Scrn Cancelled 02/06/17 09:58 Urine Cocaine Screen Cancelled 02/06/17 09:58 U Marijuana (THC) Screen Cancelled 02/06/17 09:58 Thrombosis Risk Factor Assmnt - DVT/VTE Prophylaxis DVT/VTE Prophylaxis: Mechanical Prophylaxis ordered, Contraindicated - See note (Patient chronically on Coumadin however patient has hematuria, ) - Choose All That Apply Each Risk Factor Represents 2 Points: Patient confined to bed Each Risk Factor Represents 3 Points: Age 75 years or older Thrombosis Risk Factor Assessment Total Risk Factor Score: 5 Thrombosis Risk Factor Assessment Level: High Risk Assessment and Plan Plan: 1. Severe Bradycardia with transient unresponsiveness syncope, arrhythmia most likely is the etiologic agent, beta stephen has been discontinued, patient currently is in monitored bed for telemetry, thyroid function test will be obtained, monitor for any hypotension 2. Airspace disease noted on the left base on chest x-ray finding, patient denies any aspiration events, patient is currently on Rocephin. Attempt to obtain sputum cultures 3. Catheter related urinary tract infection, await urine cultures, Lehman catheter has been changed February 06 at the emergency room 4. Chronic atrial fibrillation, anticoagulation was discussed, patient's high risk with other comorbidities including hematuria and fall risk, we will discontinue Coumadin anticoagulation at this point 5. Multiple sclerosis with power mobility device at residential, patient is not on any agents except for baclofen Diabetes mellitus type 2 on basal bolus insulin regimen, no changes, monitor for hypoglycemic events, continue on her chin to 6. Chronic pressure ulcers, air mattress with wound care nursing staff wound care nurse continue zinc oxide 7. GERD 8. Lumbar disc disease with chronic low back pain, left foot drop, on Ringwood 9. BPH with chronic urinary retention requiring Lehman catheter insertion every 3 weeks at the emergency room. It has been replaced 02/06/2017 in the emergency room 10. Chronic dependent edema, patient's on diuretics 11. Protein malnutrition, moderate protein supplementation or increase protein intake with double portions for meals 12. Hyperlipidemia on statin 13. Parkinson's with dementia on Namenda 5 mg daily no changes made 14. Dysthymia on Celexa no changes made 15. DVT prophylaxis FANTA jenna GI prophylaxis Pepcid
[2017-02-06] MEDS: FERROUS SULFATE 325 MG TAB PO SCH (18:06)
[2017-02-06] MEDS: BACLOFEN 10 MG TAB PO SCH ×2 (18:06→21:54)
[2017-02-06] MEDS: INSULIN LISPRO (humaLOG) 300 UNIT/3 ML VIAL SQ SCH (18:06)
[2017-02-06] MEDS: ASPIRIN 81 MG CHEW PO SCH (18:06)
[2017-02-06] MEDS: POTASSIUM CHLORIDE ER 10 MEQ TAB.ER.PRT PO SCH (18:07)
--- NOTE | 2017-02-06 18:07 | ECHOF ---
Referral Reason:bradycardia MEASUREMENTS -------- HEIGHT: 157.5 cm WEIGHT: 98.9 kg BP: 133/69 RVIDd: 3.4 cm (< 3.3) IVSd: 1.0 cm (0.6 - 1.1) LVIDd: 4.9 cm (3.9 - 5.3) LVPWd: 1.2 cm (0.6 - 1.1) IVSs: 2.0 cm LVIDs: 2.6 cm LVPWs: 2.0 cm Ao Diam: 3.9 cm (2.0 - 3.7) AV Cusp: 1.9 cm (1.5 - 2.6) LA Diam: 5.7 cm (2.7 - 3.8) MV EXCURSION: 11.714 mm (> 18.000) MV EF SLOPE: 122 mm/s (70 - 150) EPSS: 0.6 cm AV maxP.87 mmHg AV meanP.84 mmHg AR PHT: 389 ms RAP: 5.00 mmHg RVSP: 30.81 mmHg FINDINGS -------- Atrial fibrillation. This was a technically difficult study with suboptimal views. Left ventricular wall thickness is normal. Overall left ventricular systolic function is low-normal with, an EF between 50 - 55 %. The right ventricle is mildly enlarged. The left atrium is markedly dilated. The right atrium is normal in size. RA appears enlarged. 1.5mg of Definity was utilized for enhancement of images Aortic valve is trileaflet and is mildly thickened. Trace amount of aortic regurgitation. There is mild aortic stenosis present. Peak/mean gradient across the Aortic Valve is 14.87mmHg / 6.84mmHg. The mitral valve leaflets are mildly thickened. There is trace mitral regurgitation. Cannot exclude mitral valve prolapse. Mild tricuspid regurgitation present. The right ventricular systolic pressure, as measured by Doppler, is 30.81mmHg. The aortic root is mildy dilated. The pericardium is normal. CONCLUSIONS -------- 1. Atrial fibrillation. 2. Trace amount of aortic regurgitation. 3. There is mild aortic stenosis present. 4. Peak/mean gradient across the Aortic Valve is 14.87mmHg / 6.84mmHg. 5. The mitral valve leaflets are mildly thickened. 6. There is trace mitral regurgitation. 7. Cannot exclude mitral valve prolapse. 8. Mild tricuspid regurgitation present. 9. The right ventricular systolic pressure, as measured by Doppler, is 30.81mmHg. 10. The aortic root is mildy dilated. 11. The pericardium is normal. 12. This was a technically difficult study with suboptimal views. 13. Left ventricular wall thickness is normal. 14. The right ventricle is mildly enlarged. 15. The left atrium is markedly dilated. 16. The right atrium is normal in size. 17. RA appears enlarged. 18. 1.5mg of Definity was utilized for enhancement of images 19. Aortic valve is trileaflet and is mildly thickened. PETROGRAPHY TEACHER: Ivanna Silverman RDCS
[2017-02-06] MEDS: BUDESONIDE 0.5 MG/2 ML NEBU INHALATION SCH (21:03)
[2017-02-06 21:37] LABS: Glucose,Whole Blood 125 mg/dL (75-99)
[2017-02-06] MEDS: DICLOFENAC SODIUM GEL 100 GM TUBE TOPICAL SCH (21:54)
[2017-02-06] MEDS: ATORVASTATIN 10 MG TAB PO SCH (21:54)
[2017-02-06] MEDS: MENTHOL-ZINC OXIDE OINT 113 GM TUBE TOPICAL SCH (21:54)
[2017-02-06] MEDS: INSULIN GLARGINE 100 UNIT/ML 10 ML VIAL SQ SCH (21:55)
[2017-02-07 05:49] LABS: Glucose,Whole Blood 113 mg/dL (75-99)
[2017-02-07 06:44] LABS: Anisocytosis Slight; Basophils # (A) 0.1 k/uL (0-0.2); Basophils % (A) 1 %; CH 23.9; CHCM 29.8; Eosinophils # (A) 0.6 k/uL (0-0.7); Eosinophils % (A) 6 %; HCT 46.7 % (39.0-53.0); HDW 2.86; HGB 13.4 gm/dL (13.0-17.5); Hypochromasia Marked; Luc # (Auto) 0.25; Luc % (Auto) 3; Lymphocytes # (A) 1.9 k/uL (1.0-4.8); Lymphocytes % (A) 20 %; MCH 23.2 pg (25.0-35.0); MCHC 28.7 g/dL (31.0-37.0); MCV 80.8 fL (80.0-100.0); Mean Platelet Volume 6.9; Microcytosis Slight; Monocytes # (A) 0.5 k/uL (0-1.0); Monocytes % (A) 5 %; Neutrophils # (A) 6.4 k/uL (1.3-7.7); Neutrophils % (A) 66 %; RBC 5.78 m/uL (4.30-5.90); RDW 18.8 % (11.5-15.5); WBC 9.7 k/uL (3.8-10.6); WBC (Perox) 9.27
[2017-02-07 06:54] LABS: ALT 30 U/L (21-72); AST 15 U/L (17-59); Alkaline Phosphatase 81 U/L (38-126); Anion Gap 6 mmol/L; Blood Urea Nitrogen 15 mg/dL (9-20); Calcium 8.3 mg/dL (8.4-10.2); Carbon Dioxide 27 mmol/L (22-30); Chloride 106 mmol/L (98-107); Glucose 110 mg/dL (74-99); Non-African American GFR(MDRD) >60 (>60 ml/min/1.73 sqM); Potassium 4.8 mmol/L (3.5-5.1); Sodium 139 mmol/L (137-145); Total Bilirubin 0.4 mg/dL (0.2-1.3); Total Protein 5.8 g/dL (6.3-8.2)
[2017-02-07] MEDS: BACLOFEN 10 MG TAB PO SCH ×4 (08:23→21:46)
[2017-02-07] MEDS: INSULIN LISPRO (humaLOG) 300 UNIT/3 ML VIAL SQ SCH ×3 (08:23→17:38)
[2017-02-07] MEDS: DICLOFENAC SODIUM GEL 100 GM TUBE TOPICAL SCH ×3 (08:24→21:46)
[2017-02-07] MEDS: CITALOPRAM HYDROBROMIDE 10 MG TAB PO SCH (09:49)
[2017-02-07] MEDS: LINAGLIPTIN 5 MG TABLET PO SCH (09:49)
[2017-02-07] MEDS: MENTHOL-ZINC OXIDE OINT 113 GM TUBE TOPICAL SCH ×2 (09:50→21:46)
[2017-02-07] MEDS: MEMANTINE 5 MG TAB PO SCH (09:50)
[2017-02-07] MEDS: BUDESONIDE 0.5 MG/2 ML NEBU INHALATION SCH ×2 (11:05→19:00)
[2017-02-07 11:21] LABS: Glucose,Whole Blood 114 mg/dL (75-99)
--- NOTE | 2017-02-07 13:05 | P.PN ---
Subjective Principal diagnosis: Syncope, and responsiveness, severe bradycardia, sepsis and UTI, A. fib, memory loss, debility and urinary retention with chronic indwelling Lehman catheter. 81-year-old male one of my office patient who is a resident at [facility] long-term for the last 2 years known to have history of Parkinson disease history of advanced multiple sclerosis and chronic urinary retention with chronic indwelling Lehman catheter undercurrent history of infection, also has history of DVT with chronic history of atrophy fibrillation with rapid ventricular response well controlled lately, history of anemia history of left sided foot drop with a brace. Patient is in wheelchair his mobility is significantly decreased. He was seen this past week in [facility] [place] and was doing well. On he fell apparently and on Thursday patient developed to have significant decreased level of consciousness and unresponsiveness not doing well with pulse rate found to be in the 20s. Patient ended up coming to [facility] where was seen and evaluated surprisingly his some lactic acid was elevated his urine was positive for and continue to be in extremely ready cardiac at the time. Patient was diagnosed with sepsis and UTI with SIRS with his bradycardia consult cardiology decided to hold his Toprol for now patient has been on long-term anticoagulation has been doing well with that with no complication lately. Decided to treat his UTI and reevaluate his thyroid along with his overall condition deceive his bradycardia does not improve patient might need to go for a pacemaker. Also with his pacemaker if it 's done we will carry extremely higher chance for infection specially with the recurrent urinary tract infection and sepsis patient has been going through which will add more complication on the halfway. Objective - Vital Signs Vital signs: Vital Signs Temp 96.5 F L 02/07/17 03:40 Pulse 60 02/07/17 11:06 Resp 18 02/07/17 03:40 BP 115/68 02/07/17 03:40 Pulse Ox 99 02/07/17 03:40 Intake & Output 02/06/17 02/07/17 02/07/17 18:59 06:59 18:59 Intake Total 1481 600 240 Output Total 275 575 700 Balance 1206 25 -460 Weight 98.883 kg 104.5 kg Intake: Intake, IV Titration 525 600 Amount Sodium Chloride 0.9% 1, 525 600 000 ml @ 75 mls/hr IV . [id number] ONE Rx#:[id number] Oral 956 240 Output: Urine 275 575 700 Other: Voiding Method Indwelling Catheter Indwelling Catheter # Bowel Movements 1 - Constitutional General appearance: Present: disheveled, no acute distress, obese. Absent: average body habitus, cooperative, mild distress, morbidly obese, severe distress, thin - EENT Eyes: Present: abnormal pupil, normal appearance. Absent: anicteric sclerae, disc margins sharp, edentulous, EOMI, PERRLA, fundus normal, photophobia, dentition normal, poor dentition, ptosis, scleral icterus ENT: Present: hard of hearing, normal oropharynx. Absent: hearing grossly normal, NA/AT, other, pharyngeal erythema, thrush, tonsillar exudates, tonsillar swelling Ears: bilateral: normal - Neck Neck: Present: normal ROM. Absent: lymphadenopathy, other, rigidity, stridor, thyromegaly Carotids: bilateral: upstroke normal Thyroid: bilateral: normal size - Respiratory Respiratory: bilateral: diminished, dullness - Cardiovascular Rhythm: irregularly irregular Heart sounds: normal: S1, S2 Abnormal Heart Sounds: Present: systolic murmur, S3 Gallop - Gastrointestinal General gastrointestinal: Present: decreased bowel sounds, soft. Absent: absent bowel sounds, distended, hepatomegaly, hyperactive bowel sounds, normal bowel sounds, organomegaly, rigid, scaphoid, splenomegaly, tenderness, umbilical hernia, ventral hernia - Genitourinary Genitourinary Comment(s): Indwelling Lehman catheter with slight irritation. Male genitourinary: scrotal edema - Integumentary Integumentary Comment(s): Mild sacral irritation with stage I only Integumentary: Present: cellulitis, normal, pale, rash. Absent: calor, cyanotic , decreased turgor, flushed, jaundiced, normal turgor, ulcer - Neurologic Neurologic: Present: CNII-XII intact - Musculoskeletal Musculoskeletal: Present: generalized weakness, left sided weakness - Psychiatric Psychiatric: Present: A&O x's 3 - Labs CBC & Chem 7: 02/07/17 06:17 02/07/17 06:20 Labs: Abnormal Lab Results - Last 24 Hours (Table) 02/06/17 02/06/17 02/07/17 Range/Units 14:45 21:35 05:47 MCH (25.0-35.0) pg MCHC (31.0-37.0) g/dL RDW (11.5-15.5) % Glucose (74-99) mg/dL POC Glucose (mg/dL) 125 H 113 H (75-99) mg/dL Plasma Lactic Acid Ihsan 2.2 H* (0.7-2.0) mmol/L Calcium (8.4-10.2) mg/dL AST (17-59) U/L Total Protein (6.3-8.2) g/dL Albumin (3.5-5.0) g/dL 02/07/17 02/07/17 02/07/17 Range/Units 06:17 06:20 11:20 MCH 23.2 L (25.0-35.0) pg MCHC 28.7 L (31.0-37.0) g/dL RDW 18.8 H (11.5-15.5) % Glucose 110 H (74-99) mg/dL POC Glucose (mg/dL) 114 H (75-99) mg/dL Plasma Lactic Acid Ihsan (0.7-2.0) mmol/L Calcium 8.3 L (8.4-10.2) mg/dL AST 15 L (17-59) U/L Total Protein 5.8 L (6.3-8.2) g/dL Albumin 2.9 L (3.5-5.0) g/dL Microbiology - Last 24 Hours (Table) 02/06/17 16:03 Urine Culture - Preliminary Urine,Catheterized Assessment and Plan Plan: 1. Severe Bradycardia: Consult cardiology, his TSH was normal, treat his sepsis and reevaluate the bradycardia if no improvement require pacemaker. 2. Sepsis with UTI: Continue Rocephin and patient based on the culture with the side and oral agent for the next 2 weeks. 3. Catheter related urinary tract infection, await urine cultures, Lehman catheter has been changed February 06 at the emergency room 4. Chronic atrial fibrillation: Pulse rate is slow at this point been more bradycardic with treat his infection and evaluated the A. fib continue smaller dose of metoprolol most likely. 5. Multiple sclerosis with power mobility device at halfway, patient is not on any agents except for baclofen 6 Diabetes mellitus type 2 on basal bolus insulin regimen, no changes, monitor for hypoglycemic events, 7. Chronic pressure ulcers, air mattress with wound care nursing staff wound care nurse continue zinc oxide 8. Lumbar disc disease with chronic low back pain, left foot drop has a brace and still on [place]. 9. BPH with chronic urinary retention requiring Lehman catheter insertion every 3 weeks at the emergency room. It has been replaced 02/06/2017 in the emergency room 10. Chronic dependent edema, patient's on diuretics 11. Protein malnutrition, moderate protein supplementation or increase protein intake with double portions for meals 12. Hyperlipidemia on statin 13. dementia on Namenda 5 mg daily . 14 GERD: Continue patient on Pepcid.
[2017-02-07 16:49] LABS: Glucose,Whole Blood 104 mg/dL (75-99)
[2017-02-07] MEDS: FERROUS SULFATE 325 MG TAB PO SCH (17:01)
[2017-02-07] MEDS: ASPIRIN 81 MG CHEW PO SCH (17:01)
[2017-02-07] MEDS: POTASSIUM CHLORIDE ER 10 MEQ TAB.ER.PRT PO SCH (17:01)
[2017-02-07 20:38] LABS: Glucose,Whole Blood 111 mg/dL (75-99)
[2017-02-07] MEDS: INSULIN GLARGINE 100 UNIT/ML 10 ML VIAL SQ SCH (21:45)
[2017-02-07] MEDS: ATORVASTATIN 10 MG TAB PO SCH (21:46)
[2017-02-08 05:50] LABS: Glucose,Whole Blood 116 mg/dL (75-99)
[2017-02-08 06:54] LABS: Anisocytosis Slight; Basophils # (A) 0.1 k/uL (0-0.2); Basophils % (A) 1 %; CHCM 29.9; Eosinophils # (A) 0.4 k/uL (0-0.7); Eosinophils % (A) 5 %; HDW 2.86; HGB 13.4 gm/dL (13.0-17.5); Hypochromasia Marked; Luc # (Auto) 0.25; Luc % (Auto) 3; Lymphocytes # (A) 1.9 k/uL (1.0-4.8); Lymphocytes % (A) 22 %; MCH 23.4 pg (25.0-35.0); MCHC 29.1 g/dL (31.0-37.0); MCV 80.4 fL (80.0-100.0); Mean Platelet Volume 6.8; Microcytosis Slight; Monocytes # (A) 0.5 k/uL (0-1.0); Monocytes % (A) 6 %; Neutrophils # (A) 5.3 k/uL (1.3-7.7); Neutrophils % (A) 63 %; RBC 5.71 m/uL (4.30-5.90); RDW 18.7 % (11.5-15.5); WBC 8.4 k/uL (3.8-10.6); WBC (Perox) 8.18
[2017-02-08 07:17] LABS: ALT 23 U/L (21-72); AST 15 U/L (17-59); Alkaline Phosphatase 83 U/L (38-126); Anion Gap 7 mmol/L; Blood Urea Nitrogen 17 mg/dL (9-20); Calcium 8.6 mg/dL (8.4-10.2); Carbon Dioxide 29 mmol/L (22-30); Chloride 104 mmol/L (98-107); Glucose 111 mg/dL (74-99); Non-African American GFR(MDRD) >60 (>60 ml/min/1.73 sqM); Potassium 4.5 mmol/L (3.5-5.1); Sodium 140 mmol/L (137-145); Total Bilirubin 0.3 mg/dL (0.2-1.3); Total Protein 5.9 g/dL (6.3-8.2)
[2017-02-08] MEDS: BUDESONIDE 0.5 MG/2 ML NEBU INHALATION SCH ×2 (07:25→19:54)
[2017-02-08] MEDS: INSULIN LISPRO (humaLOG) 300 UNIT/3 ML VIAL SQ SCH ×4 (07:37→21:56)
[2017-02-08] MEDS: DICLOFENAC SODIUM GEL 100 GM TUBE TOPICAL SCH ×3 (08:10→21:59)
[2017-02-08] MEDS: LINAGLIPTIN 5 MG TABLET PO SCH (08:10)
[2017-02-08] MEDS: CITALOPRAM HYDROBROMIDE 10 MG TAB PO SCH (08:10)
[2017-02-08] MEDS: BACLOFEN 10 MG TAB PO SCH ×4 (08:10→22:01)
[2017-02-08] MEDS: MEMANTINE 5 MG TAB PO SCH (08:11)
[2017-02-08 11:31] LABS: Glucose,Whole Blood 110 mg/dL (75-99)
[2017-02-08] MEDS: MENTHOL-ZINC OXIDE OINT 113 GM TUBE TOPICAL SCH ×2 (11:45→22:03)
[2017-02-08] MEDS: LACTULOSE 20 GM/30 ML CUP PO SCH ×2 (12:46→22:01)
--- NOTE | 2017-02-08 13:06 | P.PN ---
Subjective Principal diagnosis: Syncope, and responsiveness, severe bradycardia, sepsis and UTI, A. fib, memory loss, debility and urinary retention with chronic indwelling Lehman catheter. 81-year-old male one of my office patient who is a resident at [facility] long-term for the last 2 years known to have history of Parkinson disease history of advanced multiple sclerosis and chronic urinary retention with chronic indwelling Lehman catheter undercurrent history of infection, also has history of DVT with chronic history of atrophy fibrillation with rapid ventricular response well controlled lately, history of anemia history of left sided foot drop with a brace. Patient is in wheelchair his mobility is significantly decreased. He was seen this past week in [facility] [place] and was doing well. On he fell apparently and on Thursday patient developed to have significant decreased level of consciousness and unresponsiveness not doing well with pulse rate found to be in the 20s. Patient ended up coming to [facility] where was seen and evaluated surprisingly his some lactic acid was elevated his urine was positive for and continue to be in extremely ready cardiac at the time. Patient was diagnosed with sepsis and UTI with SIRS with his bradycardia consult cardiology decided to hold his Toprol for now patient has been on long-term anticoagulation has been doing well with that with no complication lately. Decided to treat his UTI and reevaluate his thyroid along with his overall condition deceive his bradycardia does not improve patient might need to go for a pacemaker. Also with his pacemaker if it 's done we will carry extremely higher chance for infection specially with the recurrent urinary tract infection and sepsis patient has been going through which will add more complication on the mcc. 02/08/2017: Patient is feeling much better bradycardia has been resolve his urine culture still shows gram-negative bacteria with count only 50,000 was still treat patient for E. coli will continue oral antibiotic for total of 10 more days. As for his bradycardia and syncope from severe bradycardia and sick sinus syndrome has improved at this point patient would not require to have a pacemaker. Objective - Vital Signs Vital signs: Vital Signs Temp 97 F L 02/08/17 08:00 Pulse 59 L 02/08/17 12:00 Resp 16 02/08/17 12:00 BP 105/59 02/08/17 12:00 Pulse Ox 93 L 02/08/17 08:00 Intake & Output 02/07/17 02/08/17 02/08/17 18:59 06:59 18:59 Intake Total 720 240 Output Total 1999 1049 2199 Balance -1280 -1050 -1959 Weight 109 kg 109 kg Intake: Oral 720 240 Output: Urine 1999 1049 2199 Other: Voiding Method Indwelling Catheter Indwelling Catheter Indwelling Catheter # Bowel Movements 1 - Constitutional General appearance: Present: cooperative, disheveled, no acute distress, obese. Absent: average body habitus, mild distress, morbidly obese, severe distress, thin - EENT Eyes: Present: abnormal pupil, normal appearance. Absent: anicteric sclerae, disc margins sharp, edentulous, EOMI, PERRLA, fundus normal, photophobia, dentition normal, poor dentition, ptosis, scleral icterus ENT: Present: normal oropharynx. Absent: hard of hearing, hearing grossly normal, NA/AT, other, pharyngeal erythema, thrush, tonsillar exudates, tonsillar swelling Ears: bilateral: normal - Neck Neck: Present: normal ROM. Absent: lymphadenopathy, other, rigidity, stridor, thyromegaly Carotids: bilateral: upstroke normal Thyroid: bilateral: normal size - Respiratory Respiratory: bilateral: diminished, dullness - Cardiovascular Rhythm: regular Heart sounds: normal: S1, S2 Abnormal Heart Sounds: Present: systolic murmur, S3 Gallop - Gastrointestinal General gastrointestinal: Present: distended, normal bowel sounds, soft. Absent : absent bowel sounds, decreased bowel sounds, hepatomegaly, hyperactive bowel sounds, organomegaly, rigid, scaphoid, splenomegaly, tenderness, umbilical hernia, ventral hernia - Genitourinary Male genitourinary: scrotal edema - Integumentary Integumentary: Present: normal, pale, rash. Absent: calor, cellulitis, cyanotic , decreased turgor, flushed, jaundiced, normal turgor, ulcer - Neurologic Neurologic: Present: CNII-XII intact - Musculoskeletal Musculoskeletal: Present: left sided weakness. Absent: gait normal, generalized weakness, strength equal bilaterally, right sided weakness - Psychiatric Psychiatric: Present: A&O x's 3. Absent: appropriate affect, intact judgment & insight - Labs CBC & Chem 7: 02/08/17 06:22 02/08/17 06:22 Labs: Abnormal Lab Results - Last 24 Hours (Table) 02/07/17 02/07/17 02/08/17 Range/Units 16:47 20:36 05:48 MCH (25.0-35.0) pg MCHC (31.0-37.0) g/dL RDW (11.5-15.5) % Glucose (74-99) mg/dL POC Glucose (mg/dL) 104 H 111 H 116 H (75-99) mg/dL AST (17-59) U/L Total Protein (6.3-8.2) g/dL Albumin (3.5-5.0) g/dL 02/08/17 02/08/17 02/08/17 Range/Units 06:22 06:22 11:27 MCH 23.4 L (25.0-35.0) pg MCHC 29.1 L (31.0-37.0) g/dL RDW 18.7 H (11.5-15.5) % Glucose 111 H (74-99) mg/dL POC Glucose (mg/dL) 110 H (75-99) mg/dL AST 15 L (17-59) U/L Total Protein 5.9 L (6.3-8.2) g/dL Albumin 2.9 L (3.5-5.0) g/dL Microbiology - Last 24 Hours (Table) 02/06/17 16:03 Urine Culture - Preliminary Urine,Catheterized Gram Neg Bacilli Assessment and Plan Plan: 1. Severe Bradycardia: Consult cardiology, his TSH was normal, treat his sepsis and reevaluate the bradycardia if no improvement require pacemaker. 2. Sepsis with UTI: Continue Rocephin and patient based on the culture with the side and oral agent for the next 2 weeks. 3. Catheter related urinary tract infection, await urine cultures, Lehman catheter has been changed February 06 at the emergency room 4. Chronic atrial fibrillation: Pulse rate is slow at this point been more bradycardic with treat his infection and evaluated the A. fib continue smaller dose of metoprolol most likely. 5. Multiple sclerosis with power mobility device at [facility], patient is not on any agents except for baclofen 6 Diabetes mellitus type 2 on basal bolus insulin regimen, no changes, monitor for hypoglycemic events, 7. Chronic pressure ulcers, air mattress with wound care nursing staff wound care nurse continue zinc oxide 8. Lumbar disc disease with chronic low back pain, left foot drop has a brace and still on [place]. 9. BPH with chronic urinary retention requiring Lehman catheter insertion every 3 weeks at the emergency room. It has been replaced 02/06/2017 in the emergency room 10. Chronic dependent edema, patient's on diuretics 11. Protein malnutrition, moderate protein supplementation or increase protein intake with double portions for meals 12. Hyperlipidemia on statin 13. dementia on Namenda 5 mg daily . 14 GERD: Continue patient on Pepcid. Discharge planning: The patient is doing well hopefully will be back tomorrow tomorrow and after tomorrow.
[2017-02-08 16:35] LABS: Glucose,Whole Blood 135 mg/dL (75-99)
[2017-02-08] MEDS: FERROUS SULFATE 325 MG TAB PO SCH (17:05)
[2017-02-08] MEDS: POTASSIUM CHLORIDE ER 10 MEQ TAB.ER.PRT PO SCH (17:05)
[2017-02-08] MEDS: ASPIRIN 81 MG CHEW PO SCH (17:05)
[2017-02-08 20:57] LABS: Glucose,Whole Blood 151 mg/dL (75-99)
[2017-02-08] MEDS: BISACODYL 5 MG TABLET.DR PO SCH (22:01)
[2017-02-08] MEDS: ATORVASTATIN 10 MG TAB PO SCH (22:01)
[2017-02-08] MEDS: INSULIN GLARGINE 100 UNIT/ML 10 ML VIAL SQ SCH (22:01)
[2017-02-09 05:46] LABS: Glucose,Whole Blood 107 mg/dL (75-99)
[2017-02-09 06:23] LABS: Anisocytosis Slight; Basophils # (A) 0.1 k/uL (0-0.2); Basophils % (A) 1 %; CHCM 30.3; Eosinophils # (A) 0.4 k/uL (0-0.7); Eosinophils % (A) 5 %; HCT 45.5 % (39.0-53.0); HDW 2.91; HGB 13.5 gm/dL (13.0-17.5); Hypochromasia Marked; Luc # (Auto) 0.29; Luc % (Auto) 3; Lymphocytes # (A) 2.3 k/uL (1.0-4.8); Lymphocytes % (A) 25 %; MCH 23.6 pg (25.0-35.0); MCHC 29.7 g/dL (31.0-37.0); MCV 79.4 fL (80.0-100.0); Mean Platelet Volume 7.2; Microcytosis Slight; Monocytes # (A) 0.5 k/uL (0-1.0); Monocytes % (A) 6 %; Neutrophils # (A) 5.7 k/uL (1.3-7.7); Neutrophils % (A) 61 %; RBC 5.73 m/uL (4.30-5.90); RDW 18.9 % (11.5-15.5); WBC 9.3 k/uL (3.8-10.6); WBC (Perox) 8.94
[2017-02-09 06:34] LABS: ALT 29 U/L (21-72); AST 24 U/L (17-59); Alkaline Phosphatase 97 U/L (38-126); Anion Gap 9 mmol/L; Blood Urea Nitrogen 15 mg/dL (9-20); Calcium 8.9 mg/dL (8.4-10.2); Carbon Dioxide 28 mmol/L (22-30); Chloride 103 mmol/L (98-107); Glucose 106 mg/dL (74-99); Non-African American GFR(MDRD) >60 (>60 ml/min/1.73 sqM); Potassium 4.4 mmol/L (3.5-5.1); Sodium 140 mmol/L (137-145); Total Bilirubin 0.5 mg/dL (0.2-1.3); Total Protein 6.1 g/dL (6.3-8.2)
[2017-02-09] MEDS: INSULIN LISPRO (humaLOG) 300 UNIT/3 ML VIAL SQ SCH ×2 (07:33→16:50)
--- NOTE | 2017-02-09 08:16 | P.DS ---
Providers Date of admission: 02/06/17 11:38 Expected date of discharge: 02/10/17 Attending physician: Virginia Pastor Consults: 02/06/17 11:38 Consult Physician Urgent Consulting Provider: [facility] Consult Reason/Comments: Bradycardia Do you want consulting provider notified?: Yes Primary care physician: [facility] Course: 81-year-old male one of my office patient who is a resident at [facility] long-term for the last 2 years known to have history of Parkinson disease history of advanced multiple sclerosis and chronic urinary retention with chronic indwelling Lehman catheter undercurrent history of infection, also has history of DVT with chronic history of atrophy fibrillation with rapid ventricular response well controlled lately, history of anemia history of left sided foot drop with a brace. Patient is in wheelchair his mobility is significantly decreased. He was seen this past week in [facility] and was doing well. On he fell apparently and on Thursday patient developed to have significant decreased level of consciousness and unresponsiveness not doing well with pulse rate found to be in the 20s. Patient ended up coming to [facility] where was seen and evaluated surprisingly his some lactic acid was elevated his urine was positive for and continue to be in extremely ready cardiac at the time. Patient was diagnosed with sepsis and UTI with SIRS with his bradycardia consult cardiology decided to hold his Toprol for now patient has been on long-term anticoagulation has been doing well with that with no complication lately. Decided to treat his UTI and reevaluate his thyroid along with his overall condition deceive his bradycardia does not improve patient might need to go for a pacemaker. Also with his pacemaker if it 's done we will carry extremely higher chance for infection specially with the recurrent urinary tract infection and sepsis patient has been going through which will add more complication on the pluck trimmer. 02/08/2017: Patient is feeling much better bradycardia has been resolve his urine culture still shows gram-negative bacteria with count only 50,000 was still treat patient for E. coli will continue oral antibiotic for total of 10 more days. As for his bradycardia and syncope from severe bradycardia and sick sinus syndrome has improved at this point patient would not require to have a pacemaker. 02/09: Heart rate is running in the 60s to 80s. Toprol-XL has been on hold. Urine culture is showing ESBL E. coli. Velasco has been ordered and antibiotics changed to ertapenem. Consult with Dr. Moreno as he has seen him at [facility] in the past. Anticipate discharge to [facility] tomorrow. 02/10: Patient is scheduled for PICC line placement today. Dr. Moreno has recommended ertapenem for 10 day course. Following that, patient will continue on Macrobid for 1 month daily. Heart rate is running in the 60s. Patient denies any new complaints. Patient will be discharged back to [facility] in stable condition. Discharge diagnoses: 1. Severe Bradycardia 2. Sepsis with UTI 3. Catheter related urinary tract infection 4. Chronic atrial fibrillation 5. Multiple sclerosis with power mobility device at care home 6. Diabetes mellitus type 2 7. Chronic pressure ulcers, air mattress with wound care 8. Lumbar disc disease with chronic low back pain, left foot drop 9. BPH with chronic urinary retention requiring Lehman catheter insertion every 3 weeks at the emergency room. It has been replaced 02/06/2017 in the emergency room 10. Chronic dependent edema 11. Moderate protein malnutrition 12. Hyperlipidemia 13. Dementia 14. GERD Discharge plan: Return to [facility] under the care of Dr. Alexis Impression and plan of care have been directed as dictated by the signing physician. Aislinn Hyde nurse practitioner acting as scribe for signing physician. Patient Condition at Discharge: Good Plan - Discharge Summary New Discharge Prescriptions: New Ertapenem [INVanz] 1 gm IVPB DAILY #10 vial Lactulose [Cephulac] 10 gm PO BID dose Nitrofurantoin Macrocrystal [Macrodantin] 100 mg PO HS #30 cap Continue Menthol/Zinc Oxide [Calmoseptine Ointment] 1 applic TOPICAL BID Lidocaine 2% Gel [Xylocaine Jelly 2%] 1 applic TOPICAL DAILY PRN PRN Reason: PROCEDURE Loperamide HCl [Imodium A-D] 4 mg PO BID PRN MDD 8MG PRN Reason: Diarrhea Diclofenac Sodium [Voltaren Gel] 1 applic TOPICAL TID@0800,1400,2000 Acetaminophen Tab [Tylenol] 650 mg PO Q4H PRN PRN Reason: Fever And/ Or Pain Budesonide [Pulmicort] 0.5 mg INHALATION RT-BID@0800,1700 Baclofen [Lioresal] 20 mg PO BID@0800,1700 Baclofen [Lioresal] 10 mg PO BID@1200,2100 sitaGLIPtin PHOSPHATE [Januvia] 50 mg PO DAILY Simvastatin [Zocor] 20 mg PO HS Rivaroxaban [Xarelto] 15 mg PO DAILY Potassium Chloride ER [K-Dur 10] 10 meq PO DAILY@1700 Insulin Aspart [NovoLOG] 7 unit SQ DAILY@0700 Insulin Aspart [NovoLOG] 4 unit SQ DAILY@1730 Insulin Aspart [NovoLOG] 4 unit SQ DAILY@1100 Memantine [Namenda] 5 mg PO DAILY Insulin Glargine [Lantus] 10 unit SQ HS@2130 Ferrous Sulfate [Feosol] 325 mg PO DAILY@1700 Citalopram Hydrobromide [CeleXA] 10 mg PO DAILY Aspirin 81 mg PO DAILY@1700 Menthol/Zinc Oxide [Calmoseptine Ointment] 1 applic TOPICAL DAILY PRN PRN Reason: WOUND CARE HYDROcodone/APAP 7.5-325MG [[place] 7.5-325] 1 tab PO Q6H PRN #60 PRN Reason: Pain Discontinued Metoprolol Succinate (ER) [Toprol Xl] 25 mg PO DAILY Discharge Medication List Acetaminophen Tab [Tylenol] 650 mg PO Q4H PRN 02/06/17 [History] Aspirin 81 mg PO DAILY@17002/06/17 [History] Baclofen [Lioresal] 10 mg PO BID@1200,2100 02/06/17 [History] Baclofen [Lioresal] 20 mg PO BID@0800,1700 02/06/17 [History] Budesonide [Pulmicort] 0.5 mg INHALATION RT-BID@0800,1700 02/06/17 [History] Citalopram Hydrobromide [CeleXA] 10 mg PO DAILY 02/06/17 [History] Diclofenac Sodium [Voltaren Gel] 1 applic TOPICAL TID@0800,1400,199902/06/17 [ History] Ferrous Sulfate [Feosol] 325 mg PO DAILY@1700 02/06/17 [History] Insulin Aspart [NovoLOG] 4 unit SQ DAILY@1100 02/06/17 [History] Insulin Aspart [NovoLOG] 4 unit SQ DAILY@1730 02/06/17 [History] Insulin Aspart [NovoLOG] 7 unit SQ DAILY@0700 02/06/17 [History] Insulin Glargine [Lantus] 10 unit SQ HS@2130 08/18/17 [History] Lidocaine 2% Gel [Xylocaine Jelly 2%] 1 applic TOPICAL DAILY PRN 02/06/17 [ History] Loperamide HCl [Imodium A-D] 4 mg PO BID PRN MDD 8MG 02/06/17 [History] Memantine [Namenda] 5 mg PO DAILY 02/06/17 [History] Menthol/Zinc Oxide [Calmoseptine Ointment] 1 applic TOPICAL BID 02/06/17 [ History] Menthol/Zinc Oxide [Calmoseptine Ointment] 1 applic TOPICAL DAILY PRN 02/06/17 [ History] Potassium Chloride ER [K-Dur 10] 10 meq PO DAILY@1700 02/06/17 [History] Rivaroxaban [Xarelto] 15 mg PO DAILY 02/06/17 [History] Simvastatin [Zocor] 20 mg PO HS 02/06/17 [History] sitaGLIPtin PHOSPHATE [Januvia] 50 mg PO DAILY 02/06/17 [History] Ertapenem [INVanz] 1 gm IVPB DAILY #10 vial 02/10/17 [Rx] HYDROcodone/APAP 7.5-325MG [[place] 7.5-325] 1 tab PO Q6H PRN #60 02/10/17 [Rx] Lactulose [Cephulac] 10 gm PO BID dose 02/10/17 [Rx] Nitrofurantoin Macrocrystal [Macrodantin] 100 mg PO HS #30 cap 02/10/17 [Rx] Follow up Appointment(s)/Referral(s): Sabas Alexis MD [Primary Care Provider] - 3 Days
[2017-02-09] MEDS: BUDESONIDE 0.5 MG/2 ML NEBU INHALATION SCH ×2 (08:37→20:34)
[2017-02-09] MEDS: MENTHOL-ZINC OXIDE OINT 113 GM TUBE TOPICAL SCH ×2 (08:53→20:03)
[2017-02-09] MEDS: DICLOFENAC SODIUM GEL 100 GM TUBE TOPICAL SCH ×3 (08:53→20:01)
[2017-02-09] MEDS: CITALOPRAM HYDROBROMIDE 10 MG TAB PO SCH (08:54)
[2017-02-09] MEDS: BISACODYL 5 MG TABLET.DR PO SCH ×2 (08:54→20:00)
[2017-02-09] MEDS: MEMANTINE 5 MG TAB PO SCH (08:55)
[2017-02-09] MEDS: BACLOFEN 10 MG TAB PO SCH ×4 (08:55→20:00)
[2017-02-09] MEDS: LACTULOSE 20 GM/30 ML CUP PO SCH ×2 (08:55→20:00)
[2017-02-09] MEDS: LINAGLIPTIN 5 MG TABLET PO SCH (08:55)
[2017-02-09] MEDS: ERTAPENEM 1 GM in SODIUM CHLORIDE 0.9% 50 ML IVPB SCH (10:34)
[2017-02-09 11:34] LABS: Glucose,Whole Blood 110 mg/dL (75-99)
--- NOTE | 2017-02-09 12:37 | P.PN ---
Subjective Principal diagnosis: syncope This is a pleasant 81-year-old gentleman who is a resident [facility] a [facility] with a past medical history significant for chronic atrial fibrillation who was brought to the hospital by ambulance after he was found unresponsive at the [facility]. The patient does not recall feeling dizzy or lightheaded but he thinks that he lost his consciousness. He did not experience any symptoms of chest pain or discomfort or difficulty breathing or feeling of heart racing or fluttering or skipped heart beats.At to the [facility] the patient was found to be severely bradycardic with heart rate in the 30s. He was receiving Toprol- XL at 25 mg by mouth daily which was stopped. Currently the patient has been maintaining a heart rate in the 40s and he is in chronic atrial fibrillation. The patient is on anticoagulation as well as. He has severe MS and he is almost immobile. As a matter of fact he fell out of the bed few days ago. I don't think overall that the patient is a candidate to be on oral anticoagulation in view of the high risk of falling and bleeding. The EKG showed baseline atrial fibrillation with a slow ventricular response. The chest x-ray did not show any acute abnormalities. The blood work also did not show any acute abnormalities. 02/09/2017 Patient seen and examined this morning, Blood pressure 134/60 with a heart rate in the 60s. Hemoglobin 13.5, platelet count 210, potassium 4.4, BUN 15, creatinine 0.8.arrangements being made for discharge today. Objective - Vital Signs Vital signs: Vital Signs Temp 98 F 02/09/17 08:00 Pulse 66 02/09/17 08:50 Resp 16 02/09/17 08:00 BP 136/65 02/09/17 08:00 Pulse Ox 97 02/09/17 08:00 Intake & Output 02/08/17 02/09/17 02/09/17 18:59 06:59 18:59 Intake Total 720 Output Total 2200 1250 Balance -1480 -1250 Weight 109 kg 105 kg Intake: Oral 720 Output: Urine 2200 1250 Other: Voiding Method Indwelling Catheter Indwelling Catheter Indwelling Catheter - Exam PHYSICAL EXAMINATION: HEENT: [Head is atraumatic, normocephalic. Pupils equal, round. Neck is supple. There is no elevated jugular venous pressure.] HEART EXAMINATION: [Heart S1, S2 irregularly irregular systolic murmur is heard. ] CHEST EXAMINATION:lungs are clear with diminished air entry bilaterally ABDOMEN: [ Soft, nontender. Bowel sounds are heard. No organomegaly noted]. EXTREMITIES:[ 2+ peripheral pulses with no evidence of peripheral edema and no calf tenderness noted]. NEUROLOGIC [patient is awake, alert and oriented -3.] . - Labs CBC & Chem 7: 02/09/17 05:52 02/09/17 05:52 Labs: Abnormal Lab Results - Last 24 Hours (Table) 02/08/17 02/08/17 02/09/17 Range/Units 16:34 20:55 05:44 MCV (80.0-100.0) fL MCH (25.0-35.0) pg MCHC (31.0-37.0) g/dL RDW (11.5-15.5) % Glucose (74-99) mg/dL POC Glucose (mg/dL) 135 H 151 H 107 H (75-99) mg/dL Total Protein (6.3-8.2) g/dL Albumin (3.5-5.0) g/dL 02/09/17 02/09/17 02/09/17 Range/Units 05:52 05:52 11:29 MCV 79.4 L (80.0-100.0) fL MCH 23.6 L (25.0-35.0) pg MCHC 29.7 L (31.0-37.0) g/dL RDW 18.9 H (11.5-15.5) % Glucose 106 H (74-99) mg/dL POC Glucose (mg/dL) 110 H (75-99) mg/dL Total Protein 6.1 L (6.3-8.2) g/dL Albumin 3.1 L (3.5-5.0) g/dL Microbiology - Last 24 Hours (Table) 02/06/17 16:03 Urine Culture - Final Urine,Catheterized Escherichia coli Assessment and Plan (1) Sepsis secondary to UTI Status: Acute (2) Chronic a-fib Status: Acute (3) Multiple sclerosis Status: Acute (4) Diabetes Status: Acute (5) Hyperlipemia Status: Acute (6) GERD (gastroesophageal reflux disease) Status: Acute (7) Bradycardia Status: Acute Plan: From cardiology's perspective, we'll continue to hold the Toprol. Patient may be discharged once cleared by the primary. DNP note has been reviewed, I agree with a documented findings and plan of care. Patient was seen and examined.
--- NOTE | 2017-02-09 15:01 | P.PN ---
Subjective 81-year-old male one of my office patient who is a resident at [facility] long-term for the last 2 years known to have history of Parkinson disease history of advanced multiple sclerosis and chronic urinary retention with chronic indwelling Lehman catheter undercurrent history of infection, also has history of DVT with chronic history of atrophy fibrillation with rapid ventricular response well controlled lately, history of anemia history of left sided foot drop with a brace. Patient is in wheelchair his mobility is significantly decreased. He was seen this past week in [facility] and was doing well. On he fell apparently and on Thursday patient developed to have significant decreased level of consciousness and unresponsiveness not doing well with pulse rate found to be in the 20s. Patient ended up coming to [facility] where was seen and evaluated surprisingly his some lactic acid was elevated his urine was positive for and continue to be in extremely ready cardiac at the time. Patient was diagnosed with sepsis and UTI with SIRS with his bradycardia consult cardiology decided to hold his Toprol for now patient has been on long-term anticoagulation has been doing well with that with no complication lately. Decided to treat his UTI and reevaluate his thyroid along with his overall condition deceive his bradycardia does not improve patient might need to go for a pacemaker. Also with his pacemaker if it 's done we will carry extremely higher chance for infection specially with the recurrent urinary tract infection and sepsis patient has been going through which will add more complication on the care home. 02/08/2017: Patient is feeling much better bradycardia has been resolve his urine culture still shows gram-negative bacteria with count only 50,000 was still treat patient for E. coli will continue oral antibiotic for total of 10 more days. As for his bradycardia and syncope from severe bradycardia and sick sinus syndrome has improved at this point patient would not require to have a pacemaker. 02/09: Heart rate is running in the 60s to 80s. Toprol-XL has been on hold. Urine culture is showing ESBL E. coli. Velasco has been ordered and antibiotics changed to ertapenem. Consult with Dr. Moreno as he has seen him at [facility] in the past. Anticipate discharge to [facility] tomorrow. Objective - Vital Signs Vital signs: Vital Signs Temp 98 F 02/09/17 08:00 Pulse 66 02/09/17 08:50 Resp 16 02/09/17 08:00 BP 136/65 02/09/17 08:00 Pulse Ox 97 02/09/17 08:00 Intake & Output 02/08/17 02/09/17 02/09/17 18:59 06:59 18:59 Intake Total 720 Output Total 2200 1250 650 Balance -1480 -1250 -650 Weight 109 kg 105 kg Intake: Oral 720 Output: Urine 2200 1250 650 Other: Voiding Method Indwelling Catheter Indwelling Catheter Indwelling Catheter - Exam General appearance: Present: cooperative, disheveled, no acute distress, obese. Absent: average body habitus, mild distress, morbidly obese, severe distress, thin - EENT Eyes: Present: abnormal pupil, normal appearance. Absent: anicteric sclerae, disc margins sharp, edentulous, EOMI, PERRLA, fundus normal, photophobia, dentition normal, poor dentition, ptosis, scleral icterus ENT: Present: normal oropharynx. Absent: hard of hearing, hearing grossly normal, NA/AT, other, pharyngeal erythema, thrush, tonsillar exudates, tonsillar swelling Ears: bilateral: normal - Neck Neck: Present: normal ROM. Absent: lymphadenopathy, other, rigidity, stridor, thyromegaly Carotids: bilateral: upstroke normal Thyroid: bilateral: normal size - Respiratory Respiratory: bilateral: diminished, dullness - Cardiovascular Rhythm: regular Heart sounds: normal: S1, S2 Abnormal Heart Sounds: Present: systolic murmur, S3 Gallop - Gastrointestinal General gastrointestinal: Present: distended, normal bowel sounds, soft. Absent : absent bowel sounds, decreased bowel sounds, hepatomegaly, hyperactive bowel sounds, organomegaly, rigid, scaphoid, splenomegaly, tenderness, umbilical hernia, ventral hernia - Genitourinary Male genitourinary: scrotal edema - Integumentary Integumentary: Present: normal, pale, rash. Stage I decubitus ulcer right buttocks, approximately 3 cm. Absent: calor, cellulitis, cyanotic, decreased turgor, flushed, jaundiced, normal turgor, ulcer - Neurologic Neurologic: Present: CNII-XII intact - Musculoskeletal Musculoskeletal: Present: left sided weakness. Absent: gait normal, generalized weakness, strength equal bilaterally, right sided weakness - Psychiatric Psychiatric: Present: A&O x's 3. Absent: appropriate affect, intact judgment & insight - Labs CBC & Chem 7: 02/09/17 05:52 02/09/17 05:52 Labs: Abnormal Lab Results - Last 24 Hours (Table) 02/08/17 02/08/17 02/09/17 Range/Units 16:34 20:55 05:44 MCV (80.0-100.0) fL MCH (25.0-35.0) pg MCHC (31.0-37.0) g/dL RDW (11.5-15.5) % Glucose (74-99) mg/dL POC Glucose (mg/dL) 135 H 151 H 107 H (75-99) mg/dL Total Protein (6.3-8.2) g/dL Albumin (3.5-5.0) g/dL 02/09/17 02/09/17 02/09/17 Range/Units 05:52 05:52 11:29 MCV 79.4 L (80.0-100.0) fL MCH 23.6 L (25.0-35.0) pg MCHC 29.7 L (31.0-37.0) g/dL RDW 18.9 H (11.5-15.5) % Glucose 106 H (74-99) mg/dL POC Glucose (mg/dL) 110 H (75-99) mg/dL Total Protein 6.1 L (6.3-8.2) g/dL Albumin 3.1 L (3.5-5.0) g/dL Microbiology - Last 24 Hours (Table) 02/06/17 16:03 Urine Culture - Final Urine,Catheterized Escherichia coli Assessment and Plan Plan: 1. Severe Bradycardia: Consult cardiology, his TSH was normal, treat his sepsis and reevaluate the bradycardia if no improvement require pacemaker. Toprol on hold. 2. Sepsis with UTI: Continue Rocephin and patient based on the culture with the side and oral agent for the next 2 weeks. 3. Catheter related urinary tract infection with ESBL E. coli. Antibiotics changed to ertapenem and PICC line ordered. Consult with Dr. Moreno. Lehman catheter has been changed February 06 at the emergency room 4. Chronic atrial fibrillation: Pulse rate is slow at this point been more bradycardic with treat his infection and evaluated the A. fib continue smaller dose of metoprolol most likely. 5. Multiple sclerosis with power mobility device at [facility], patient is not on any agents except for baclofen 6 Diabetes mellitus type 2 on basal bolus insulin regimen, no changes, monitor for hypoglycemic events, 7. Chronic pressure ulcers, air mattress with wound care nursing staff wound care nurse continue zinc oxide 8. Lumbar disc disease with chronic low back pain, left foot drop has a brace and still on [place]. 9. BPH with chronic urinary retention requiring Lehman catheter insertion every 3 weeks at the emergency room. It has been replaced 02/06/2017 in the emergency room 10. Chronic dependent edema, patient's on diuretics 11. Protein malnutrition, moderate protein supplementation or increase protein intake with double portions for meals 12. Hyperlipidemia on statin 13. dementia on Namenda 5 mg daily . 14 GERD: Continue patient on Pepcid. Discharge planning: on Thursday Impression and plan of care have been directed as dictated by the signing physician. Aislinn Hyde nurse practitioner acting as scribe for signing physician.
[2017-02-09 16:49] LABS: Glucose,Whole Blood 94 mg/dL (75-99)
[2017-02-09] MEDS: ASPIRIN 81 MG CHEW PO SCH (17:41)
[2017-02-09] MEDS: POTASSIUM CHLORIDE ER 10 MEQ TAB.ER.PRT PO SCH (17:42)
[2017-02-09] MEDS: FERROUS SULFATE 325 MG TAB PO SCH (17:42)
[2017-02-09] MEDS: ATORVASTATIN 10 MG TAB PO SCH (20:00)
[2017-02-09 20:35] LABS: Glucose,Whole Blood 163 mg/dL (75-99)
[2017-02-09] MEDS: INSULIN GLARGINE 100 UNIT/ML 10 ML VIAL SQ SCH (21:45)
[2017-02-10 07:35] LABS: Glucose,Whole Blood 120 mg/dL (75-99)
[2017-02-10 07:54] VITALS: BP 140/72; TEMP 97.7
[2017-02-10] MEDS: ERTAPENEM 1 GM in SODIUM CHLORIDE 0.9% 50 ML IVPB SCH (08:19)
[2017-02-10] MEDS: CITALOPRAM HYDROBROMIDE 10 MG TAB PO SCH (08:20)
[2017-02-10] MEDS: BISACODYL 5 MG TABLET.DR PO SCH (08:20)
[2017-02-10] MEDS: LACTULOSE 20 GM/30 ML CUP PO SCH (08:20)
[2017-02-10] MEDS: MEMANTINE 5 MG TAB PO SCH (08:20)
[2017-02-10] MEDS: DICLOFENAC SODIUM GEL 100 GM TUBE TOPICAL SCH (08:21)
[2017-02-10] MEDS: BACLOFEN 10 MG TAB PO SCH ×2 (08:21→08:23)
[2017-02-10] MEDS: MENTHOL-ZINC OXIDE OINT 113 GM TUBE TOPICAL SCH (08:22)
[2017-02-10] MEDS: INSULIN LISPRO (humaLOG) 300 UNIT/3 ML VIAL SQ SCH ×2 (08:23→12:45)
[2017-02-10] MEDS: LINAGLIPTIN 5 MG TABLET PO SCH (08:25)
[2017-02-10] MEDS: BUDESONIDE 0.5 MG/2 ML NEBU INHALATION SCH (08:55)
[2017-02-10 08:58] VITALS: RESP 14
[2017-02-10 09:34] VITALS: PULSE 63
[2017-02-10 11:30] LABS: Glucose,Whole Blood 136 mg/dL (75-99)
--- NOTE | 2017-02-10 13:33 | CONS ---
DATE OF SERVICE: 02/09/2017 REASON FOR CONSULTATION: ESBL E. coli urinary tract infection. HISTORY OF PRESENT ILLNESS: The patient is an 81-year-old male who is a resident of [facility] and patient was brought into the emergency room at [facility] 02/06/17 after [facility]. On route to the emergency room the patient was noticed to be bradycardic. The patient has been ( ) has been discontinued. The patient also has a history of urinary retention and chronic urinary tract infection requiring an indwelling Lehman catheter and that apparently was changed in the emergency room and urinalysis was obtained from the new Lehman that was positive. The urine culture was finalized today with an ESBL Escherichia coli. Antibiotics were changed to ertapenem. I was asked to see the patient for further recommendations. Patient denies any headache or chest pain. No shortness of breath or cough. No abdominal pain or any diarrhea. He was not very clear about his symptomatology and denied any acute symptoms to me. REVIEW OF SYSTEMS: CONSTITUTIONAL: Positive for weakness, but no fever. EYES: No complaint. ENT: No complaint. RESPIRATORY: No complaint. CARDIOVASCULAR: As per HPI. GENITOURINARY: As per HPI. GASTROINTESTINAL: No complaint. MUSCULOSKELETAL: No complaint. INTEGUMENTARY: No complaint. PSYCHOLOGICAL: No complaint. ENDOCRINE: No complaint. NEUROLOGICAL: No complaint. PAST MEDICAL HISTORY: Significant for chronic obstructive pulmonary disease, diabetes mellitus, atrial fibrillation, urinary retention requiring indwelling Lehman and recurrent urinary tract infections. PAST SURGICAL HISTORY: TURP, left shoulder arthroscopy. SOCIAL HISTORY: Quit smoking about 13 years ago. No drinking or drug use. FAMILY HISTORY: Father at age of 85 from heart disease. Mother at age of 80 from thyroid cancer and heart disease. ALLERGIES: No known drug allergies. Medications include the patient is currently on Tylenol, [place], aspirin, Lipitor , baclofen, Dulcolax, Pulmicort, Celexa, alclofenac, hydrosulfite, Lantus, Humalog. On examination: Blood pressure 138/76 with pulse 64. Temperature 97.8. He is 92 % on room air. General description is an elderly male lying in bed in no distress. No tachypnea or accessory muscle of respiration use. HEENT examination shows no pallor or scleral icterus. Oral mucous membrane is dry. NECK: Trachea is central. No thyromegaly. LUNGS: Unlabored breathing. Clear to auscultation anteriorly. HEART: S1, S2 regular rate and rhythm. ABDOMEN: Soft, no tenderness. No guarding, no rigidity. EXTREMITIES: No edema feet. SKIN: No rash or mass palpable. NEUROLOGICAL: Patient is awake, alert, oriented. Mood and affect normal. LABS: Hemoglobin is 13.5, white count 9.3, BUN of 15, creatinine 0.08. Electrolytes have been normal. Urine was positive. Leukocyte esterase is more than 1 WBC. Culture positive for ESBL Escherichia coli. DIAGNOSTIC IMPRESSION AND PLAN: Patient admitted to the hospital with unresponsiveness related to his ( ) discontinued. Patient also with chronic indwelling Lehman catheter and urinary retention. Urinalysis obtained from new Lehman was significantly positive. Culture positive for ESBL with component of Lehman associated urinary tract infection not entirely excluded. PLAN: The patient got ertapenem 1 gram IV piggyback daily for at least 10 days to finish course of therapy. Patient scheduled for PICC Line tomorrow morning. Once the PICC line is placed antibiotics initiated, the [facility]. EJ
[2017-02-10] MEDS ORDERED: LIDOCAINE 2% INJ 20 MG/ML SQ ONE (15:08)
--- NOTE | 2017-02-10 16:05 | IR ---
EXAMINATION TYPE: IR cvc insert >=5 years DATE OF EXAM: 02/10/2017 COMPARISON: NONE CLINICAL HISTORY: Infection Needs long-term intravenous access for antibiotics. PROCEDURE: After informed consent, the skin overlying the left basilic vein was localized with ultrasound and no len to be compressible and patent. An ultrasound image was obtained and submitted on the patient's c szymanski. The overlying skin was prepped and draped and Lidocaine was used for local anesthesia. A skin tiffanie was made with a scalpel. Access was gained to the vein under ultrasound guidance with a 21 gau ge needle and a 0.018 inch wire was advanced. Access site was dilated with Peel-Away sheath and cath eter tailored to the appropriate length and advanced such that the distal tip is at the cavoatrial ju nction. Spot image was obtained verifying placement. Catheter was fixed to the skin with suture and a sterile dressing was placed following hemostasis. Catheter was aspirated and flushed with saline. Patient was discharged in stable condition without complication. Maximal barrier technique is utili zed. Ultrasound image is documented on the chart. Ultrasound used with sterile technique. Fluoro time and fluoroscopic images submitted to document procedure: 45 intraoperative C-arm images, 0.4 minutes fluoroscopy time IMPRESSION: STATUS POST ULTRASOUND AND FLUOROSCOPIC GUIDED PICC LINE PLACEMENT, READY FOR USE. THIS PROCEDURE WAS PERFORMED BY THE UNDERSIGNED.
--- NOTE | 2017-02-10 21:23 | PN ---
DATE OF SERVICE: 02/10/17 REASON FOR FOLLOW UP: ESBL E. coli urinary tract infection. INTERVAL HISTORY: The patient is afebrile. He is breathing comfortably. The patient denies any significant chest pain, shortness of breath, cough or abdominal pain or diarrhea. On examination, blood pressure 140/72 with a pulse of 68. Temperature 97.7. He is 98% on room air. General description is an elderly male lying in the bed in no distress. Respiratory system unlabored breathing. Clear to auscultation anteriorly. Heart S1, S2 regular rate and rhythm. Abdomen soft. No tenderness. LABS: White count 9.3. DIAGNOSTIC IMPRESSION AND PLAN: The patient with ESBL E. coli urinary tract infection in a patient who did have history of recurrent urinary tract infection and a Lehman catheter. Plan at this time is get a PICC line, continue IV antibiotics for another ten days with outpatient follow-up. EJ
== END 2017-02-10 17:05 | DRG 698 ==
LOC: EC 09:34 → 6SEL 11:38 → 5MS5E 02-09 15:44
PROVIDERS: ADMIT Family Medicine; ATTEND Family Medicine
PROC: 02HV33Z Insertion of Infusion Device into Superior Vena Cava, Percutaneous Approach (ICD-10-PCS; principal; 2017-02-10 14:48)
PROC: B548ZZA Ultrasonography of Superior Vena Cava, Guidance (ICD-10-PCS; 2017-02-10 14:48)
PROC: B518ZZA Fluoroscopy of Superior Vena Cava, Guidance (ICD-10-PCS; 2017-02-10 14:48)
DX: T83.511A Infection and inflammatory reaction due to indwelling urethral catheter, initial encounter (principal); A41.9 Sepsis, unspecified organism; E44.0 Moderate protein-calorie malnutrition; G20 Parkinson's disease; I49.5 Sick sinus syndrome; G35 Multiple sclerosis; I48.2 Chronic atrial fibrillation; J44.9 Chronic obstructive pulmonary disease, unspecified; N39.0 Urinary tract infection, site not specified; Z66 Do not resuscitate; F02.80 Dementia in other diseases classified elsewhere, unspecified severity, without behavioral disturbance, psychotic disturbance, mood disturbance, and anxiety; E11.9 Type 2 diabetes mellitus without complications; B96.20 Unspecified Escherichia coli [E. coli] as the cause of diseases classified elsewhere; L89.90 Pressure ulcer of unspecified site, unspecified stage; E78.5 Hyperlipidemia, unspecified; F34.1 Dysthymic disorder; G89.29 Other chronic pain; I25.10 Atherosclerotic heart disease of native coronary artery without angina pectoris; K21.9 Gastro-esophageal reflux disease without esophagitis; N40.1 Benign prostatic hyperplasia with lower urinary tract symptoms; R33.8 Other retention of urine; M53.87 Other specified dorsopathies, lumbosacral region; M21.372 Foot drop, left foot; Z16.12 Extended spectrum beta lactamase (ESBL) resistance; Z79.82 Long term (current) use of aspirin; Z79.01 Long term (current) use of anticoagulants; Z79.51 Long term (current) use of inhaled steroids; Z79.84 Long term (current) use of oral hypoglycemic drugs; Z79.4 Long term (current) use of insulin; Z79.899 Other long term (current) drug therapy; Z74.01 Bed confinement status; Z87.891 Personal history of nicotine dependence; Z91.81 History of falling; Z87.440 Personal history of urinary (tract) infections; Z86.718 Personal history of other venous thrombosis and embolism; Y84.6 Urinary catheterization as the cause of abnormal reaction of the patient, or of later complication, without mention of misadventure at the time of the procedure
CPT/HCPCS: 36415; 36569; 71020; 76937; 77001; 80053; 81001; 82550; 82553; 83605; 84443; 84484; 85025; 85610; 85730; 87077; 87086; 87186; 93005; 93306; 94640; 96365; 99285

== ENCOUNTER 2018-05-29 00:37 | Observation (INO) | payer MEDICARE, OTHER ==
[2018-05-29 03:01] LABS: Appearance,Urine Turbid (Clear); Bacteria,Urine Many /hpf; Bilirubin,Urine Negative (Negative); Blood,Urine Large (Negative); Color,Urine Red; Glucose,Urine (UA) Negative (Negative); Ketones,Urine Trace (Negative); Leukocyte Esterase,Urine Large (Negative); Nitrite,Urine Negative (Negative); PH, Urine 6.5 (5.0-8.0); Protein,Urine 2+ (Negative); RBC,Urine >182 /hpf (0-5); Specific Gravity,Urine 1.017 (1.001-1.035); WBC,Urine >182 /hpf (0-5)
[2018-05-29] MEDS ORDERED: LIDOCAINE URO-JET JELLY 2% 5 ML KIT URETHRAL ONE (03:04)
--- NOTE | 2018-05-29 03:12 | ED ---
General Adult HPI - General Source: patient, EMS <AdrianShahnaz abdullahi - Last Filed: 05/29/18 06:33> <Geo Garsia - Last Filed: 06/07/18 08:16> - General Chief complaint: Recheck/Abnormal Lab/Rx Stated complaint: romero placement - History of Present Illness Initial comments: 82-year-old male past medical history of MS, chronic urinary catheter, neurogenic bladder, [id number]-[id number] type II diabetic, hypertension presenting today for chief complaint of urinary retention. Pt was sent over from [facility] for urology evaluation after failed attempt at Romero catheterization. Patient is accompanied by his daughter who states that he has a resident at [facility]. She states that he had decreased urinary output from chronic indwelling catheter. She noted that it looked cloudy the days proceeding. Daughter states that there was a recorded fever at [facility] this afternoon, after 2 failed attempts at catherization, pt was sent over to [facility] for romero placement. After failed attempts pt was sent for evaluation by urology and romero placement. Upon arrival pt appears nontoxic. Febrile at 100.4F. Pt is AAOx4. Upon ROS, patient admits to lower abdominal discomfort/pressure, and pain for romero attempts. Pt denies any recent chills, shortness of breath, chest pain, back pain, abdominal pain, nausea or vomiting, numbness or tingling , constipation or diarrhea, headaches or visual changes, or any other complaints. Daughter stressed that pt is hospice, and she does not want any unnecessary interventions, however she would like romero placement. Daughter is power of litigation attorney. (Shahnaz Cervantes) - Related Data Home Medications Medication Instructions Recorded Confirmed Acetaminophen Tab [Tylenol] 650 mg PO Q4H PRN 02/06/17 05/29/18 Baclofen [Lioresal] 10 mg PO BID@1200,2100 02/06/17 05/29/18 Baclofen [Lioresal] 20 mg PO BID@0800,1700 02/06/17 05/29/18 Budesonide [Pulmicort] 0.5 mg INHALATION RT-DAILY 02/06/17 05/29/18 Insulin Aspart [NovoLOG 4 unit SQ DAILY@1100 02/06/17 05/29/18 (formulary)] Insulin Aspart [NovoLOG 4 unit SQ DAILY@1730 02/06/17 05/29/18 (formulary)] Insulin Aspart [NovoLOG 7 unit SQ QAM@0700 02/06/17 05/29/18 (formulary)] Insulin Glargine [Lantus] 10 unit SQ HS@2130 02/06/17 05/29/18 Potassium Chloride ER [K-Dur 10] 10 meq PO BID@0800,1700 02/06/17 05/29/18 Rivaroxaban [Xarelto] 15 mg PO DAILY@1700 02/06/17 05/29/18 sitaGLIPtin PHOSPHATE [Januvia] 50 mg PO DAILY 02/06/17 05/29/18 HYDROcodone/APAP 5-325MG [[place] 1 tab PO Q6HR PRN 05/29/18 05/29/18 5-325] Ipratropium-Albuterol Nebulize 3 ml INHALATION RT-Q6H PRN 05/29/18 05/29/18 [Duoneb 0.5 mg-3 mg/3 ml Soln] Lactose-Reduced Food [Ensure Plus] 1 can PO TID@0800,1200,1700 05/29/18 05/29/18 Magic Butt Paste 1 applic TOPICAL BID 05/29/18 05/29/18 Metoprolol Succinate [Toprol XL] 25 mg PO DAILY 05/29/18 05/29/18 Previous Rx's Medication Instructions Recorded Atropine Ophth Soln 1% 5Ml [Isopto 1 drops SUBLINGUAL Q4H bottle 05/29/18 Atropine 1% 5Ml] Cefuroxime Axetil [Ceftin] 500 mg PO BID 10 Days #20 tab 05/29/18 HYDROcodone/APAP 7.5-325MG [[place] 1 tab PO Q6H PRN #12 tab 05/29/18 7.5-325] Allergies Allergy/AdvReac Type Severity Reaction Status Date / Time No Known Allergies Allergy Verified 05/29/18 11:35 Review of Systems ROS Other: All systems not noted in ROS Statement are negative. Constitutional: Reports: fever. Denies: chills, night sweats ENT: Denies: ear pain, throat pain Respiratory: Denies: cough, dyspnea, wheezes, hemoptysis, stridor Cardiovascular: Denies: chest pain, palpitations, dyspnea on exertion Endocrine: Denies: fatigue Gastrointestinal: Reports: abdominal pain. Denies: nausea, vomiting, diarrhea, constipation, hematemesis, melena, hematochezia Genitourinary: Reports: dysuria, hematuria. Denies: urgency, frequency, discharge Musculoskeletal: Denies: back pain Skin: Denies: rash, lesions Neurological: Denies: headache, weakness, numbness, paresthesias, abnormal gait <Shahnaz Cervantes - Last Filed: 05/29/18 06:33> ROS Other: All systems not noted in ROS Statement are negative. <Geo Garsia - Last Filed: 06/07/18 08:16> ROS Statement: Those systems with pertinent positive or pertinent negative responses have been documented in the HPI. Past Medical History Past Medical History: Atrial Fibrillation, COPD, Diabetes Mellitus, Memory Impairment, Pneumonia, Prostate Disorder Additional Past Medical History / Comment(s): lt foot drop, low back pain.MS , murmur, chronic romero past 10 years according to pt's .changed 02-06-17).uti' s(ecoli) per [facility] it stated hx hypertension and high cholesterol but family not aware of this. History of Any Multi-Drug Resistant Organisms: ESBL Date of last positivie culture/infection: 02/06/17 MDRO Source:: ESBL URINE Past Surgical History: Orthopedic Surgery Additional Past Surgical History / Comment(s): lt shoulder rotator cuff repair. pmh listed turp-family not aware of this Past Psychological History: No Psychological Hx Reported Smoking Status: Former smoker - Past Family History Father History Unknown: Yes Mother History Unknown: Yes Brother(s) Family Medical History: No Reported History Sister(s) Family Medical History: No Reported History Daughter(s) Family Medical History: No Reported History Son(s) Family Medical History: Coronary Artery Disease (CAD) <Shahnaz Cervantes - Last Filed: 05/29/18 06:33> General Exam <Shahnaz Cervantes - Last Filed: 05/29/18 06:33> <Geo Garsia - Last Filed: 06/07/18 08:16> - General Exam Comments Initial Comments: General: The patient is awake and alert, in no distress, and does not appear acutely ill. Eye: Pupils are equal, round and reactive to light, extra-ocular movements are intact. No nystagmus. There is normal conjunctiva bilaterally. No signs of icterus. Ears, nose, mouth and throat: There are moist mucous membranes and no oral lesions. Neck: The neck is supple, there is no tenderness or JVD. Cardiovascular: There is a regular rate and rhythm. No murmur, rub or gallop is appreciated. Respiratory: Lungs are clear to auscultation, respirations are non-labored, breath sounds are equal. No wheezes, stridor, rales, or rhonchi. Gastrointestinal: Soft, non-tender abdomen without masses or organomegaly noted. Pt tender to palpation of the superior bladder margin. There is no rebound or guarding present. No CVA tenderness. Bowel sounds are unremarkable. Musculoskeletal: Normal ROM, no tenderness. Generalized weakness noted of extremities. Sensation intact. Radial pulses equal bilaterally 2+. Neurological: A&O x 3. CN II-XII intact, There are no obvious motor or sensory deficits. Coordination appears grossly intact. Speech is normal. Skin: Skin is warm and dry and no rashes or lesions are noted. Psychiatric: Cooperative, appropriate mood & affect, normal judgment. (Shahnaz Cervantes) Vital Signs 05/29/18 05/29/18 00:41 04:45 Temperature 100.4 F H 98.8 F Pulse Rate 87 84 Respiratory 17 16 Rate Blood Pressure 111/71 118/74 O2 Sat by Pulse 93 L Oximetry Medical Decision Making - Lab Data Result diagrams: 05/29/18 01:45 <Shahnaz Cervantes - Last Filed: 05/29/18 06:33> - Lab Data Result diagrams: 05/29/18 07:48 05/29/18 04:30 <Geo Garsia - Last Filed: 06/07/18 08:16> - Medical Decision Making 82yo male presenting for romero placement. 2 failed attempts at romero placement, including by Dr. Garsia. Pt having overflow incontinence. No complete obstruction noted. Dr. Ramirez consulted by Dr. Garsia. Dr. Ramirez accepted admission, stating he would see patient. Pt febrile at 100.4. WBC 20,000. Pt has elevated lactic acid at 2.8. Blood cultures obtained and pending. Pt started on IV abx, rocephin for treatment of UTI (UA revealed increased WBC/ signs of infection). Original CMP hemolyzed. Redraw pending. Pt given morphine for pain mgmt. Pt daughter was back and forth in regards to decision for treatment of infection, she was stating that their family has had multiple conversations including with patient, stating he did no want hospitalizations or interventions, however agreed to abx and romero placement for comfort. Medicine consulted. Dr. Garsia aware of patient prior to shift change, he will resume care until pt is transferred to the floor. (Shahnaz Cervantes) I saw this patient in conjunction with the physician assistant attorney general. I performed independent history and physical exam. Agree with case management. (Geo Garsia) - Lab Data Lab Results 05/29/18 05/29/18 05/29/18 Range/Units 01:45 01:45 02:15 WBC 20.1 H (3.8-10.6) k/uL RBC 6.36 H (4.30-5.90) m/uL Hgb 15.1 (13.0-17.5) gm/dL Hct 50.6 (39.0-53.0) % MCV 79.5 L (80.0-100.0) fL MCH 23.7 L (25.0-35.0) pg MCHC 29.8 L (31.0-37.0) g/dL RDW 16.8 H (11.5-15.5) % Plt Count 216 (150-450) k/uL Neutrophils % 82 % Lymphocytes % 11 % Monocytes % 5 % Eosinophils % 0 % Basophils % 1 % Neutrophils # 16.4 H (1.3-7.7) k/uL Lymphocytes # 2.2 (1.0-4.8) k/uL Monocytes # 1.0 (0-1.0) k/uL Eosinophils # 0.1 (0-0.7) k/uL Basophils # 0.1 (0-0.2) k/uL Hypochromasia Moderate Anisocytosis Slight Microcytosis Slight Lactic Ac Sepsis Rflx Plasma Lactic Acid Ihsan 2.8 H* (0.7-2.0) mmol/L Urine Color Red Urine Appearance Turbid (Clear) Urine pH 6.5 (5.0-8.0) Ur Specific [place] 1.017 (1.001-1.035) Urine Protein 2+ H (Negative) Urine Glucose (UA) Negative (Negative) Urine Ketones Trace H (Negative) Urine Blood Large H (Negative) Urine Nitrite Negative (Negative) Urine Bilirubin Negative (Negative) Urine Urobilinogen 3.0 (<2.0) mg/dL Ur Leukocyte Esterase Large H (Negative) Urine RBC >182 H (0-5) /hpf Urine WBC >182 H (0-5) /hpf Urine WBC Clumps Many H (None) /hpf Urine Bacteria Many H (None) /hpf 05/29/18 Range/Units 03:50 WBC (3.8-10.6) k/uL RBC (4.30-5.90) m/uL Hgb (13.0-17.5) gm/dL Hct (39.0-53.0) % MCV (80.0-100.0) fL MCH (25.0-35.0) pg MCHC (31.0-37.0) g/dL RDW (11.5-15.5) % Plt Count (150-450) k/uL Neutrophils % % Lymphocytes % % Monocytes % % Eosinophils % % Basophils % % Neutrophils # (1.3-7.7) k/uL Lymphocytes # (1.0-4.8) k/uL Monocytes # (0-1.0) k/uL Eosinophils # (0-0.7) k/uL Basophils # (0-0.2) k/uL Hypochromasia Anisocytosis Microcytosis Lactic Ac Sepsis Rflx Y Plasma Lactic Acid Ihsan (0.7-2.0) mmol/L Urine Color Urine Appearance (Clear) Urine pH (5.0-8.0) Ur Specific [place] (1.001-1.035) Urine Protein (Negative) Urine Glucose (UA) (Negative) Urine Ketones (Negative) Urine Blood (Negative) Urine Nitrite (Negative) Urine Bilirubin (Negative) Urine Urobilinogen (<2.0) mg/dL Ur Leukocyte Esterase (Negative) Urine RBC (0-5) /hpf Urine WBC (0-5) /hpf Urine WBC Clumps (None) /hpf Urine Bacteria (None) /hpf Disposition Is patient prescribed a controlled substance at d/c from ED?: No Time of Disposition: 03:52 Decision to Admit Reason: Admit from EC Decision Date: 05/29/18 Decision Time: 03:52 <Shahnaz Cervantes - Last Filed: 05/29/18 06:33> <Geo Garsia - Last Filed: 06/07/18 08:16> Clinical Impression: UTI (urinary tract infection), Urinary retention, Lactic acidosis Disposition: ADMITTED IP TO THIS HOSP Condition: Stable
[2018-05-29] MEDS ORDERED: SODIUM CHLORIDE 0.9% 1,000 ML IV SCH (03:30)
[2018-05-29] MEDS ORDERED: NALOXONE 0.4 MG/ML 1 ML VIAL IV PRN (03:35)
[2018-05-29 03:40] LABS: Anisocytosis Slight; Basophils # (A) 0.1 k/uL (0-0.2); Basophils % (A) 1 %; Eosinophils # (A) 0.1 k/uL (0-0.7); Eosinophils % (A) 0 %; HCT 50.6 % (39.0-53.0); HGB 15.1 gm/dL (13.0-17.5); Hypochromasia Moderate; Lymphocytes # (A) 2.2 k/uL (1.0-4.8); Lymphocytes % (A) 11 %; MCH 23.7 pg (25.0-35.0); MCHC 29.8 g/dL (31.0-37.0); MCV 79.5 fL (80.0-100.0); Microcytosis Slight; Monocytes % (A) 5 %; Neutrophils # (A) 16.4 k/uL (1.3-7.7); Neutrophils % (A) 82 %; Platelet Count 216 k/uL (150-450); RBC 6.36 m/uL (4.30-5.90); RDW 16.8 % (11.5-15.5); WBC 20.1 k/uL (3.8-10.6)
[2018-05-29] MEDS ORDERED: MORPHINE SULFATE 4 MG/ML SYRINGE IV PRN (03:45)
[2018-05-29] MEDS ORDERED: ACETAMINOPHEN TAB 325 MG TAB PO STA (03:53)
[2018-05-29] MEDS ORDERED: MORPHINE SULFATE 2 MG/ML SYRINGE IVP STA (04:12)
[2018-05-29 04:59] VITALS: RESP 16
[2018-05-29 04:59] LABS: Albumin 3.3 g/dL (3.5-5.0); Calcium 9.1 mg/dL (8.4-10.2); Total Bilirubin 1.2 mg/dL (0.2-1.3)
[2018-05-29 05:02] LABS: Potassium 5.6 mmol/L (3.5-5.1)
[2018-05-29 07:41] VITALS: BP 104/69; PULSE 86; TEMP 98.5
--- NOTE | 2018-05-29 09:28 | P.GSHP ---
History of Present Illness H&P Date: 05/29/18 The patient is an 82-year-old [facility] patient due to advanced multiple sclerosis and immobility area and he has a chronic indwelling catheter. Yesterday afternoon and evening the [facility] attempted to exchange it but were unable to do so. He was initially sent to [facility] where they could not exchange and thus he was transferred to [facility]. In the emergency room they were unable to change it. I was is asked to see the patient in replace the catheter. Apparently according to the daughter he has had several attempts in the past where the catheter has been unable to be placed without urologic consultation. He sees as his primary urologist. I'm seeing him and Dr. Nix's absence. His vital signs are stable and he is not febrile. According to the daughter however he did have a temperature of 102 at the [facility]. - Constitutional Constitutional: Reports fever - Genitourinary (Male) Genitourinary: Reports as per HPI - Musculoskeletal Musculoskeletal: Reports as per HPI Past Medical History Past Medical History: Atrial Fibrillation, COPD, Diabetes Mellitus, Memory Impairment, Pneumonia, Prostate Disorder Additional Past Medical History / Comment(s): lt foot drop, low back pain.MS , murmur, chronic romero past 10 years according to pt's .changed 02-06-17).uti' s(ecoli) per [facility] it stated hx hypertension and high cholesterol but family not aware of this. History of Any Multi-Drug Resistant Organisms: ESBL Date of last positivie culture/infection: 02/06/17 MDRO Source:: ESBL URINE Past Surgical History: Orthopedic Surgery Additional Past Surgical History / Comment(s): lt shoulder rotator cuff repair. pmh listed turp-family not aware of this Past Psychological History: No Psychological Hx Reported Smoking Status: Former smoker - Past Family History Father History Unknown: Yes Mother History Unknown: Yes Brother(s) Family Medical History: No Reported History Sister(s) Family Medical History: No Reported History Daughter(s) Family Medical History: No Reported History Son(s) Family Medical History: Coronary Artery Disease (CAD) Medications and Allergies Home Medications Medication Instructions Recorded Confirmed Type Acetaminophen Tab [Tylenol] 650 mg PO Q4H PRN 02/06/17 02/06/17 History Aspirin 81 mg PO DAILY@1700 02/06/17 02/06/17 History Baclofen [Lioresal] 10 mg PO BID@1200,2100 02/06/17 02/06/17 History Baclofen [Lioresal] 20 mg PO BID@0800,1700 02/06/17 02/06/17 History Budesonide [Pulmicort] 0.5 mg INHALATION RT-BID@0800,1700 02/06/17 02/06/17 History Citalopram Hydrobromide [CeleXA] 10 mg PO DAILY 02/06/17 02/06/17 History Diclofenac Sodium [Voltaren Gel] 1 applic TOPICAL TID@0800,1400,2000 02/06/17 History Ferrous Sulfate [Feosol] 325 mg PO DAILY@1700 02/06/17 02/06/17 History Insulin Aspart [NovoLOG 4 unit SQ DAILY@1100 02/06/17 02/06/17 History (formulary)] Insulin Aspart [NovoLOG 4 unit SQ DAILY@1730 02/06/17 02/06/17 History (formulary)] Insulin Aspart [NovoLOG 7 unit SQ DAILY@0700 02/06/17 02/06/17 History (formulary)] Insulin Glargine [Lantus] 10 unit SQ HS@2130 02/06/17 02/06/17 History Lidocaine 2% Gel [Xylocaine Jelly 1 applic TOPICAL DAILY PRN 02/06/17 02/06/17 History 2%] Loperamide HCl [Imodium A-D] 4 mg PO BID PRN MDD 8MG 02/06/17 02/06/17 History Memantine [Namenda] 5 mg PO DAILY 02/06/17 02/06/17 History Menthol/Zinc Oxide [Calmoseptine 1 applic TOPICAL BID 02/06/17 02/06/17 History Ointment] Menthol/Zinc Oxide [Calmoseptine 1 applic TOPICAL DAILY PRN 02/06/17 02/06/17 History Ointment] Potassium Chloride ER [K-Dur 10] 10 meq PO DAILY@1700 02/06/17 02/06/17 History Rivaroxaban [Xarelto] 15 mg PO DAILY 02/06/17 02/06/17 History Simvastatin [Zocor] 20 mg PO HS 08/18/17 08/18/17 History sitaGLIPtin PHOSPHATE [Januvia] 50 mg PO DAILY 02/06/17 02/06/17 History Ertapenem [INVanz] 1 gm IVPB DAILY #10 vial 02/10/17 Rx HYDROcodone/APAP 7.5-325MG [[place] 1 tab PO Q6H PRN #60 02/10/17 Rx 7.5-325] Lactulose [Cephulac] 10 gm PO BID dose 02/10/17 Rx Nitrofurantoin Macrocrystal 100 mg PO HS #30 cap 02/10/17 Rx [Macrodantin] Allergies Allergy/AdvReac Type Severity Reaction Status Date / Time No Known Allergies Allergy Verified 02/06/17 09:55 Surgical - Exam Vital Signs Temp Pulse Resp BP Pulse Ox 100.4 F H 87 17 111/71 93 L 05/29/18 00:41 05/29/18 00:41 05/29/18 00:41 05/29/18 00:41 05/29/18 00:41 - General well developed, well nourished, no distress - Eyes PERRL - ENT no hearing loss - Neck trachea midline - Respiratory normal expansion, normal respiratory effort - Cardiovascular Rhythm: regular - Abdomen Abdomen: soft, non tender - Genitourinary The patient is an uncircumcised. The ventral urethra is eroded to the penoscrotal junction. Testes epididymis unremarkable - Integumentary no rash - Neurologic The patient sensation is markedly diminished. He is immobile below the waist. - Musculoskeletal normal posture - Psychiatric oriented to time, oriented to person, oriented to place, speech is normal, memory intact Results - Labs 05/29/18 01:45 05/29/18 04:30 Abnormal Lab Results - Last 24 Hours (Table) 05/29/18 05/29/18 05/29/18 Range/Units 01:45 01:45 02:15 WBC 20.1 H (3.8-10.6) k/uL RBC 6.36 H (4.30-5.90) m/uL MCV 79.5 L (80.0-100.0) fL MCH 23.7 L (25.0-35.0) pg MCHC 29.8 L (31.0-37.0) g/dL RDW 16.8 H (11.5-15.5) % Neutrophils # 16.4 H (1.3-7.7) k/uL Potassium (3.5-5.1) mmol/L Carbon Dioxide (22-30) mmol/L BUN (9-20) mg/dL Glucose (74-99) mg/dL Plasma Lactic Acid Ihsan 2.8 H* (0.7-2.0) mmol/L Albumin (3.5-5.0) g/dL Urine Protein 2+ H (Negative) Urine Ketones Trace H (Negative) Urine Blood Large H (Negative) Ur Leukocyte Esterase Large H (Negative) Urine RBC >182 H (0-5) /hpf Urine WBC >182 H (0-5) /hpf Urine WBC Clumps Many H (None) /hpf Urine Bacteria Many H (None) /hpf 05/29/18 05/29/18 Range/Units 04:30 07:48 WBC (3.8-10.6) k/uL RBC (4.30-5.90) m/uL MCV (80.0-100.0) fL MCH (25.0-35.0) pg MCHC (31.0-37.0) g/dL RDW (11.5-15.5) % Neutrophils # (1.3-7.7) k/uL Potassium 5.6 H (3.5-5.1) mmol/L Carbon Dioxide 31 H (22-30) mmol/L BUN 22 H (9-20) mg/dL Glucose 163 H (74-99) mg/dL Plasma Lactic Acid Ihsan 2.1 H* (0.7-2.0) mmol/L Albumin 3.3 L (3.5-5.0) g/dL Urine Protein (Negative) Urine Ketones (Negative) Urine Blood (Negative) Ur Leukocyte Esterase (Negative) Urine RBC (0-5) /hpf Urine WBC (0-5) /hpf Urine WBC Clumps (None) /hpf Urine Bacteria (None) /hpf Diabetes panel 05/29/18 Range/Units 04:30 Sodium 139 (137-145) mmol/L Potassium 5.6 H (3.5-5.1) mmol/L Chloride 102 (98-107) mmol/L Carbon Dioxide 31 H (22-30) mmol/L BUN 22 H (9-20) mg/dL Creatinine 1.12 (0.66-1.25) mg/dL Glucose 163 H (74-99) mg/dL Calcium 9.1 (8.4-10.2) mg/dL AST 25 (17-59) U/L ALT 21 (21-72) U/L Alkaline Phosphatase 82 (38-126) U/L Total Protein 7.0 (6.3-8.2) g/dL Albumin 3.3 L (3.5-5.0) g/dL Calcium panel 05/29/18 Range/Units 04:30 Calcium 9.1 (8.4-10.2) mg/dL Albumin 3.3 L (3.5-5.0) g/dL Pituitary panel 05/29/18 Range/Units 04:30 Sodium 139 (137-145) mmol/L Potassium 5.6 H (3.5-5.1) mmol/L Chloride 102 (98-107) mmol/L Carbon Dioxide 31 H (22-30) mmol/L BUN 22 H (9-20) mg/dL Creatinine 1.12 (0.66-1.25) mg/dL Glucose 163 H (74-99) mg/dL Calcium 9.1 (8.4-10.2) mg/dL Adrenal panel 05/29/18 Range/Units 04:30 Sodium 139 (137-145) mmol/L Potassium 5.6 H (3.5-5.1) mmol/L Chloride 102 (98-107) mmol/L Carbon Dioxide 31 H (22-30) mmol/L BUN 22 H (9-20) mg/dL Creatinine 1.12 (0.66-1.25) mg/dL Glucose 163 H (74-99) mg/dL Calcium 9.1 (8.4-10.2) mg/dL Total Bilirubin 1.2 (0.2-1.3) mg/dL AST 25 (17-59) U/L ALT 21 (21-72) U/L Alkaline Phosphatase 82 (38-126) U/L Total Protein 7.0 (6.3-8.2) g/dL Albumin 3.3 L (3.5-5.0) g/dL Assessment and Plan Assessment: Impression: inability to pass catheter. Neurogenic bladder secondary to multiple sclerosis. Advanced multiple sclerosis. Insulin-dependent diabetes. Medical issues. Febrile urinary infection with sepsis Recommendations: I will place the catheter's morning. He will continue with antibiotics. Dr. Vigil of medicine will manage medical issues.
[2018-05-29] MEDS ORDERED: BACLOFEN 10 MG TAB PO PRN (09:44)
[2018-05-29] MEDS ORDERED: BISACODYL 10 MG SUPP RECTAL PRN (09:45)
[2018-05-29] MEDS ORDERED: guaiFENesin SYRUP 100MG/5ML 200 MG/10 ML CUP PO PRN (09:47)
[2018-05-29] MEDS ORDERED: METOPROLOL SUCCINATE (ER) 25 MG TAB.ER.24H PO STA (09:49)
[2018-05-29] MEDS ORDERED: MORPHINE SULFATE ER 15 MG TABLET PO STA (09:51)
[2018-05-29] MEDS ORDERED: MAGNESIUM HYDROXIDE 2,400 MG/10 ML CUP PO PRN (09:51)
[2018-05-29] MEDS ORDERED: HYDROcodone/APAP 5-325MG 1 EACH TAB PO PRN (09:52)
[2018-05-29] MEDS: ATROPINE OPHTH SOLN 1% 5ML BTL SUBLINGUAL SCH ×2 (10:07→15:55)
--- NOTE | 2018-05-29 11:31 | P.CONS ---
History of Present Illness - Reason for Consult Consult date: 05/29/18 Medical Management. Requesting physician: Ike Ramirez - Chief Complaint Urinary retention/Hospice - History of Present Illness Consult and Discharge summary: This is a pleasant 82-year-old gentleman patient of Dr. Dr. Alexis up at [facility], he has underlying history of Parkinson's requiring a power chair otherwise he is bedbound, chronic indwelling Romero catheter, CAD, chronic atrial fibrillation, BPH, anemia, left foot drop, admitted to the hospital because the nurse at [facility] tried several times to replace the Romero catheter without any success and it was traumatic with significant urinary retention and hematuria at that time patient has been under hospice care at [facility] and he was advised by the hospice nurse to go to the ER for evaluation and Romero catheter replacement, and ER physician attempted to place a Romero catheter without any success the patient ended up seeing urology Dr. Holm who placed a Romero catheter for the patient and the plan was to arrange for suprapubic catheter to be done as an outpatient as definitive treatment for his condition as the patient does appear to have a significant scar tissue with significant False passage, patient does appear to have a significant urinary tract infection with sepsis and leukocytosis and was given IV fluid as well as IV antibiotic and urine culture was sent, I discussed with his daughter the plan to send him back to [facility] under hospice care we will follow-up on the culture as an outpatient. Review of Systems Constitutional: Reports anorexia, Reports fatigue, Reports weakness Eyes: denies blurred vision, denies bulging eye, denies decreased vision Ears, nose, mouth and throat: Denies dysphagia, Denies neck lump, Denies sore throat Cardiovascular: Denies chest pain, Denies decreased exercise tolerance, Denies dyspnea on exertion, Denies phlebitis, Denies rapid heart beat, Denies shortness of breath Respiratory: Denies congestion, Denies cough with sputum, Denies home oxygen, Denies sleep apnea, Denies snoring Gastrointestinal: Denies abdominal pain, Denies heartburn, Denies melena, Denies nausea, Denies vomiting Genitourinary: Reports dysuria, Reports nocturia, Reports polyuria, Reports urinary retention Musculoskeletal: Reports arm numbness/tingling, Reports atrophy, Reports gait dysfunction, Reports limitation of motion, Reports muscle weakness Musculoskeletal: bilateral: ankle swelling, absent: ankle pain, ankle stiffness , elbow pain, elbow stiffness, elbow swelling, foot pain, foot stiffness, foot swelling, hand pain, hand stiffness, hand swelling, hip pain, hip stiffness, hip swelling, knee pain, knee stiffness, knee swelling, shoulder pain, shoulder stiffness, shoulder swelling, wrist pain, wrist stiffness, wrist swelling Integumentary: Reports as per HPI Neurological: Reports gait dysfunction, Reports lack of coordination, Reports motor disturbance, Reports paralysis, Reports sensory deficit, Reports spasticity, Reports weakness Psychiatric: Denies anxiety, Denies depression Endocrine: Denies fatigue, Denies weight change Past Medical History Past Medical History: Atrial Fibrillation, COPD, Diabetes Mellitus, Memory Impairment, Pneumonia, Prostate Disorder Additional Past Medical History / Comment(s): lt foot drop, low back pain.MS , murmur, chronic romero past 10 years according to pt's .changed 02-06-17).uti' s(ecoli) per [facility] it stated hx hypertension and high cholesterol but family not aware of this. History of Any Multi-Drug Resistant Organisms: ESBL Year Discovered:: 02/06/17 MDRO Source:: ESBL URINE Past Surgical History: Orthopedic Surgery Additional Past Surgical History / Comment(s): lt shoulder rotator cuff repair. [facility] listed turp-family not aware of this Past Psychological History: No Psychological Hx Reported Smoking Status: Former smoker - Past Family History Father History Unknown: Yes Mother History Unknown: Yes Brother(s) Family Medical History: No Reported History Sister(s) Family Medical History: No Reported History Daughter(s) Family Medical History: No Reported History Son(s) Family Medical History: Coronary Artery Disease (CAD) Medications and Allergies Home Medications Medication Instructions Recorded Confirmed Type Acetaminophen Tab [Tylenol] 650 mg PO Q4H PRN 02/06/17 02/06/17 History Aspirin 81 mg PO DAILY@1700 02/06/17 02/06/17 History Baclofen [Lioresal] 10 mg PO BID@1200,2100 02/06/17 02/06/17 History Baclofen [Lioresal] 20 mg PO BID@0800,1700 02/06/17 02/06/17 History Budesonide [Pulmicort] 0.5 mg INHALATION RT-BID@0800,1700 02/06/17 02/06/17 History Citalopram Hydrobromide [CeleXA] 10 mg PO DAILY 02/06/17 02/06/17 History Diclofenac Sodium [Voltaren Gel] 1 applic TOPICAL TID@0800,1400,2000 02/06/17 History Ferrous Sulfate [Feosol] 325 mg PO DAILY@1700 02/06/17 02/06/17 History Insulin Aspart [NovoLOG 4 unit SQ DAILY@1100 02/06/17 02/06/17 History (formulary)] Insulin Aspart [NovoLOG 4 unit SQ DAILY@1730 02/06/17 02/06/17 History (formulary)] Insulin Aspart [NovoLOG 7 unit SQ DAILY@0700 02/06/17 02/06/17 History (formulary)] Insulin Glargine [Lantus] 10 unit SQ HS@2130 02/06/17 02/06/17 History Lidocaine 2% Gel [Xylocaine Jelly 1 applic TOPICAL DAILY PRN 02/06/17 02/06/17 History 2%] Loperamide HCl [Imodium A-D] 4 mg PO BID PRN MDD 8MG 02/06/17 02/06/17 History Memantine [Namenda] 5 mg PO DAILY 02/06/17 02/06/17 History Menthol/Zinc Oxide [Calmoseptine 1 applic TOPICAL BID 02/06/17 02/06/17 History Ointment] Menthol/Zinc Oxide [Calmoseptine 1 applic TOPICAL DAILY PRN 02/06/17 02/06/17 History Ointment] Potassium Chloride ER [K-Dur 10] 10 meq PO DAILY@1700 02/06/17 02/06/17 History Rivaroxaban [Xarelto] 15 mg PO DAILY 02/06/17 02/06/17 History Simvastatin [Zocor] 20 mg PO HS 02/06/17 02/06/17 History sitaGLIPtin PHOSPHATE [Januvia] 50 mg PO DAILY 02/06/17 02/06/17 History Ertapenem [INVanz] 1 gm IVPB DAILY #10 vial 02/10/17 Rx HYDROcodone/APAP 7.5-325MG [[place] 1 tab PO Q6H PRN #60 02/10/17 Rx 7.5-325] Lactulose [Cephulac] 10 gm PO BID dose 02/10/17 Rx Nitrofurantoin Macrocrystal 100 mg PO HS #30 cap 02/10/17 Rx [Macrodantin] Allergies Allergy/AdvReac Type Severity Reaction Status Date / Time No Known Allergies Allergy Verified 02/06/17 09:55 Physical Exam Vitals: Vital Signs Temp Pulse Pulse Resp BP BP Pulse Ox 05/29/18 05:12 98.2 F 79 16 112/65 94 L 05/29/18 04:45 98.8 F 84 16 118/74 05/29/18 00:41 100.4 F H 87 17 111/71 93 L Intake and Output 05/28/18 05/29/18 05/29/18 22:59 06:59 14:59 Other: # Voids 2 Weight 90.718 kg - Constitutional General appearance: average body habitus, no acute distress - EENT Eyes: anicteric sclerae, EOMI, PERRLA, no ptosis, no scleral icterus, normal appearance ENT: hard of hearing, NA/AT, normal oropharynx, no thrush Ears: bilateral: normal - Neck Neck: no lymphadenopathy, normal ROM, no rigidity Carotids: bilateral: upstroke delayed - Respiratory Respiratory: bilateral: diminished, negative: dullness, rales, rhonchi, wheezing , prolonged expiration, prolonged inspiration - Cardiovascular Rhythm: irregularly irregular Heart sounds: normal: S1, S2 Abnormal Heart Sounds: systolic murmur - Gastrointestinal General gastrointestinal: normal bowel sounds, soft, no splenomegaly, no tenderness - Integumentary Integumentary: normal, normal turgor - Neurologic Neurologic: focal deficits - Psychiatric Psychiatric: A&O x's 3, appropriate affect, intact judgment & insight Results CBC & Chem 7: 05/29/18 01:45 05/29/18 04:30 Labs: Abnormal Lab Results - Last 24 Hours (Table) 05/29/18 05/29/18 05/29/18 Range/Units 01:45 01:45 02:15 WBC 20.1 H (3.8-10.6) k/uL RBC 6.36 H (4.30-5.90) m/uL MCV 79.5 L (80.0-100.0) fL MCH 23.7 L (25.0-35.0) pg MCHC 29.8 L (31.0-37.0) g/dL RDW 16.8 H (11.5-15.5) % Neutrophils # 16.4 H (1.3-7.7) k/uL Potassium (3.5-5.1) mmol/L Carbon Dioxide (22-30) mmol/L BUN (9-20) mg/dL Glucose (74-99) mg/dL Plasma Lactic Acid Ihsan 2.8 H* (0.7-2.0) mmol/L Albumin (3.5-5.0) g/dL Urine Protein 2+ H (Negative) Urine Ketones Trace H (Negative) Urine Blood Large H (Negative) Ur Leukocyte Esterase Large H (Negative) Urine RBC >182 H (0-5) /hpf Urine WBC >182 H (0-5) /hpf Urine WBC Clumps Many H (None) /hpf Urine Bacteria Many H (None) /hpf 05/29/18 Range/Units 04:30 WBC (3.8-10.6) k/uL RBC (4.30-5.90) m/uL MCV (80.0-100.0) fL MCH (25.0-35.0) pg MCHC (31.0-37.0) g/dL RDW (11.5-15.5) % Neutrophils # (1.3-7.7) k/uL Potassium 5.6 H (3.5-5.1) mmol/L Carbon Dioxide 31 H (22-30) mmol/L BUN 22 H (9-20) mg/dL Glucose 163 H (74-99) mg/dL Plasma Lactic Acid Ihsan (0.7-2.0) mmol/L Albumin 3.3 L (3.5-5.0) g/dL Urine Protein (Negative) Urine Ketones (Negative) Urine Blood (Negative) Ur Leukocyte Esterase (Negative) Urine RBC (0-5) /hpf Urine WBC (0-5) /hpf Urine WBC Clumps (None) /hpf Urine Bacteria (None) /hpf Assessment and Plan Assessment: Assessment and plan: 1. Acute urinary retention due to neurogenic bladder due to multiple sclerosis. Post Romero catheter placement as a temporary relief and the patient will need to have a suprapubic catheter as an outpatient follow-up with urology as indicated. 2. Sepsis. Patient was started on IV antibiotic in the form of Rocephin 1 g IV piggyback every 24 hours, fluid resuscitation, urine cultures were sent, I will switch the patient to oral Ceftin 500 mg orally twice every day for the next 10 days follow-up on the cultures as an outpatient and send the patient back to [facility] and hospice. 3. Catheter associated urinary tract infection. Continue treatment as in previous paragraph. 4. Chronic atrial fibrillation. We'll continue his Xarelto 15 mg orally once every day. 5. [facility] sclerosis [facility], patient is not on any agents except for baclofen 6. Diabetes mellitus type 2 . We'll continue with his insulin regimen. 7. GERD. Continue with PPI. 8. Lumbar disc disease with chronic low back pain, left foot drop, on [place] 9. BPH with chronic urinary retention requiring Romero catheter. 10. Chronic dependent edema, patient is on diuretics 11. Protein malnutrition, moderate protein supplementation or increase protein intake with double portions for meals 12. Hyperlipidemia on statin 13. Parkinson's with dementia on Namenda 5 mg daily no changes made 14. Dysthymia on Celexa no changes made 15. Patient can be transferred back to [facility] under hospice care.
[2018-05-29 11:44] LABS: Anisocytosis Slight; Basophils # (A) 0.1 k/uL (0-0.2); Basophils % (A) 1 %; Eosinophils # (A) 0.1 k/uL (0-0.7); Eosinophils % (A) 0 %; HCT 47.7 % (39.0-53.0); HGB 14.2 gm/dL (13.0-17.5); Hypochromasia Marked; Lymphocytes # (A) 1.9 k/uL (1.0-4.8); Lymphocytes % (A) 11 %; MCH 23.9 pg (25.0-35.0); MCHC 29.8 g/dL (31.0-37.0); MCV 80.3 fL (80.0-100.0); Mean Platelet Volume 7.1; Microcytosis Slight; Monocytes # (A) 0.9 k/uL (0-1.0); Monocytes % (A) 6 %; Neutrophils # (A) 13.1 k/uL (1.3-7.7); Neutrophils % (A) 80 %; Platelet Count 203 k/uL (150-450); RBC 5.93 m/uL (4.30-5.90); WBC 16.3 k/uL (3.8-10.6)
[2018-05-29] MEDS ORDERED: INSULIN ASPART 100 UNIT/ML 1 ML 10 ML VIAL SQ SCH (12:30)
[2018-05-29] MEDS ORDERED: IPRATROPIUM-ALBUTEROL 3 ML NEB INHALATION SCH (14:00)
[2018-05-29] MEDS ORDERED: BUDESONIDE 0.5 MG/2 ML NEBU INHALATION SCH (20:00)
[2018-05-29] MEDS ORDERED: CEFUROXIME 1,500 MG in SODIUM CHLORIDE 0.9% 100 ML IVPB SCH (21:00)
[2018-05-29] MEDS ORDERED: INSULIN DETEMIR 100 UNIT/ML 10 ML VIAL SQ SCH (21:00)
[2018-05-30] MEDS ORDERED: POTASSIUM CHLORIDE ER 10 MEQ TAB.ER.PRT PO SCH (09:00)
[2018-05-30] MEDS ORDERED: RIVAROXABAN 10 MG TAB PO SCH (09:00)
--- NOTE | 2018-06-01 08:34 | P.PCN ---
Date of Procedure: 05/29/18 Preoperative Diagnosis: inability to pass catheter Postoperative Diagnosis: urehtral stricture, urine retention Procedure(s) Performed: dilation of urethral stricture, difficult placement of catheter. Surgeon: Ike Ramirez Description of Procedure: THe patient is prepped and draped steriley.. I failed a 14 and 16 fr coude tip cath I dilate a distal bulbar stricture with f/f 12-20 fr WIth difficult I pass a 14 fr coude tip catheter. the patient may benefit from a SP tube in the future. This has been discussed with the patient and his daughter.
--- NOTE | 2018-06-07 09:48 | P.DS ---
Providers Date of admission: 05/29/18 03:52 Attending physician: Ike Ramirez Consults: 05/29/18 03:45 Consult Physician Stat Consulting Provider: Sabas Alexis Reason/Comments: medicine consult Do you want consulting provider notified?: Yes Primary care physician: Sabas Alexis Hospital Course: The [facility] came [facility] [place] because his cath couldnt be replaced. He was put in the hospital. I exchanged his catheter. HE was seen and discharged later that day back to the [facility] by dr jensen. His condition was stable He will fu in 1 mos for a catheter change Patient Condition at Discharge: Stable Plan - Discharge Summary Discharge Rx Participant: No New Discharge Prescriptions: New Atropine Ophth Soln 1% 5Ml [Isopto Atropine 1% 5Ml] 1 drops SUBLINGUAL Q4H bottle Cefuroxime Axetil [Ceftin] 500 mg PO BID 10 Days #20 tab Continue Acetaminophen Tab [Tylenol] 650 mg PO Q4H PRN PRN Reason: Fever And/ Or Pain Budesonide [Pulmicort] 0.5 mg INHALATION RT-DAILY Baclofen [Lioresal] 20 mg PO BID@0800,1700 Baclofen [Lioresal] 10 mg PO BID@1200,2100 sitaGLIPtin PHOSPHATE [Januvia] 50 mg PO DAILY Rivaroxaban [Xarelto] 15 mg PO DAILY@1700 Potassium Chloride ER [K-Dur 10] 10 meq PO BID@0800,1700 Insulin Aspart [NovoLOG (formulary)] 7 unit SQ QAM@0700 Insulin Aspart [NovoLOG (formulary)] 4 unit SQ DAILY@1730 Insulin Aspart [NovoLOG (formulary)] 4 unit SQ DAILY@1100 Insulin Glargine [Lantus] 10 unit SQ HS@2130 HYDROcodone/APAP 7.5-325MG [[place] 7.5-325] 1 tab PO Q6H PRN #12 tab PRN Reason: Pain Discontinued Ertapenem [INVanz] 1 gm IVPB DAILY #10 vial Nitrofurantoin Macrocrystal [Macrodantin] 100 mg PO HS #30 cap No Action Ipratropium-Albuterol Nebulize [Duoneb 0.5 mg-3 mg/3 ml Soln] 3 ml INHALATION RT-Q6H PRN PRN Reason: Shortness Of Breath HYDROcodone/APAP 5-325MG [[place] 5-325] 1 tab PO Q6HR PRN PRN Reason: Pain Magic Butt Paste 1 applic TOPICAL BID Lactose-Reduced Food [Ensure Plus] 1 can PO TID@0800,1200,1700 Metoprolol Succinate [Toprol XL] 25 mg PO DAILY Discharge Medication List Acetaminophen Tab [Tylenol] 650 mg PO Q4H PRN 02/06/17 [History] Baclofen [Lioresal] 10 mg PO BID@1200,2100 02/06/17 [History] Baclofen [Lioresal] 20 mg PO BID@0800,1700 02/06/17 [History] Budesonide [Pulmicort] 0.5 mg INHALATION RT-DAILY 02/06/17 [History] Insulin Aspart [NovoLOG (formulary)] 4 unit SQ DAILY@1100 02/06/17 [History] Insulin Aspart [NovoLOG (formulary)] 4 unit SQ DAILY@1730 02/06/17 [History] Insulin Aspart [NovoLOG (formulary)] 7 unit SQ QAM@0700 02/06/17 [History] Insulin Glargine [Lantus] 10 unit SQ HS@2130 02/06/17 [History] Potassium Chloride ER [K-Dur 10] 10 meq PO BID@0800,1700 02/06/17 [History] Rivaroxaban [Xarelto] 15 mg PO DAILY@1700 02/06/17 [History] sitaGLIPtin PHOSPHATE [Januvia] 50 mg PO DAILY 02/06/17 [History] Atropine Ophth Soln 1% 5Ml [Isopto Atropine 1% 5Ml] 1 drops SUBLINGUAL Q4H bottle 05/29/18 [Rx] Cefuroxime Axetil [Ceftin] 500 mg PO BID 10 Days #20 tab 05/29/18 [Rx] HYDROcodone/APAP 5-325MG [[place] 5-325] 1 tab PO Q6HR PRN 05/29/18 [History] HYDROcodone/APAP 7.5-325MG [[place] 7.5-325] 1 tab PO Q6H PRN #12 tab 05/29/18 [Rx ] Ipratropium-Albuterol Nebulize [Duoneb 0.5 mg-3 mg/3 ml Soln] 3 ml INHALATION RT -Q6H PRN 05/29/18 [History] Lactose-Reduced Food [Ensure Plus] 1 can PO TID@0800,1200,1700 05/29/18 [History ] Magic Butt Paste 1 applic TOPICAL BID 05/29/18 [History] Metoprolol Succinate [Toprol XL] 25 mg PO DAILY 05/29/18 [History] Follow up Appointment(s)/Referral(s): Sabas Alexis MD [Primary Care Provider] - 1-2 days Discharge Disposition: TRANSFER TO SNF/ECF
== END 2018-05-29 17:46 ==
LOC: EC 00:37 → 4SSUR 03:52
PROVIDERS: ADMIT Urology; ATTEND Urology
DX: T83.518A Infection and inflammatory reaction due to other urinary catheter, initial encounter (principal); N39.0 Urinary tract infection, site not specified; A41.9 Sepsis, unspecified organism; N31.9 Neuromuscular dysfunction of bladder, unspecified; E87.2 Acidosis; N35.919 Unspecified urethral stricture, male, unspecified site; N40.1 Benign prostatic hyperplasia with lower urinary tract symptoms; R33.8 Other retention of urine; E44.0 Moderate protein-calorie malnutrition; G20 Parkinson's disease; F02.80 Dementia in other diseases classified elsewhere, unspecified severity, without behavioral disturbance, psychotic disturbance, mood disturbance, and anxiety; G35 Multiple sclerosis; I48.2 Chronic atrial fibrillation; E11.9 Type 2 diabetes mellitus without complications; K21.9 Gastro-esophageal reflux disease without esophagitis; M21.372 Foot drop, left foot; G89.29 Other chronic pain; M54.5 Low back pain; M51.9 Unspecified thoracic, thoracolumbar and lumbosacral intervertebral disc disorder; R60.9 Edema, unspecified; E78.5 Hyperlipidemia, unspecified; F34.1 Dysthymic disorder; Z79.82 Long term (current) use of aspirin; Z79.4 Long term (current) use of insulin; Z79.01 Long term (current) use of anticoagulants; Z79.51 Long term (current) use of inhaled steroids; Z79.899 Other long term (current) drug therapy; Z16.12 Extended spectrum beta lactamase (ESBL) resistance; Z87.01 Personal history of pneumonia (recurrent); Z87.891 Personal history of nicotine dependence; Z82.49 Family history of ischemic heart disease and other diseases of the circulatory system; Y84.6 Urinary catheterization as the cause of abnormal reaction of the patient, or of later complication, without mention of misadventure at the time of the procedure
CPT/HCPCS: 53600; 96365; 96375; 99285; 36415; 80053; 83605; 85025; 81001; 87040; 87086; 87077; 87186; 87150; G0378; J0696; J2270